=== PATIENT | female | born 1965 | race Caucasian/White ===

== ENCOUNTER 2020-03-21 10:32 | Emergency (ER) | payer BC ==
[~2020-03-21] VITALS: Ht 167.6 cm; Wt 70.5 kg
[2020-03-21] MEDS ORDERED: normal saline 1000ML IV soln IV ONE (10:35)
[2020-03-21] MEDS ORDERED: ondansetron/PF 4mg/2ml inj IV ONE ×2 (10:45→14:10)
--- NOTE | 2020-03-21 11:06 | NUR ---
Spoke to pt's , Oswaldo, regarding pt's condition. Gave him ED phone number for updates. Home:
[2020-03-21 11:31] LABS: EOSINOPHILS % (AUTO) 0.8 % (0-6); HEMATOCRIT 42.8 % (35.0-45.0); HEMOGLOBIN 14.6 g/dl (12.0-16.0); LYMPHOCYTES # (AUTO) 0.7 X10'3 (1.1-4.8); LYMPHOCYTES % (AUTO) 16.6 % (21-51); MEAN CORPUSCULAR HEMOGLOBIN 34.8 PG (27.0-31.0); MEAN CORPUSCULAR HGB CONC 34.1 g/dL (33.0-36.5); MEAN PLATELET VOLUME 9.3 FL (7.4-10.4); MONOCYTES # (AUTO) 0.2 X10'3 (0-0.9); MONOCYTES % (AUTO) 4.4 % (2-12); NEUTROPHILS % (AUTO) 77.2 % (42-75); PLATELET COUNT 66 X10'3 (140-440); RED CELL DISTRIBUTION WIDTH 13.6 % (11.5-14.5); WHITE BLOOD COUNT 3.9 X10'3 (4.5-11.0)
[2020-03-21 11:57] LABS: ALANINE AMINOTRANSFERASE 67 U/L (12-78); ALBUMIN 3.8 G/DL (3.4-5.0); ALBUMIN/GLOBULIN RATIO 0.8 (1.1-1.5); ALKALINE PHOSPHATASE 230 IU/L (46-116); ANION GAP 14 (8-16); ASPARTATE AMINO TRANSFERASE 148 U/L (10-37); BILIRUBIN,TOTAL 2.6 MG/DL (0.1-1.0); BLOOD UREA NITROGEN 4 MG/DL (7-18); BUN/CREATININE RATIO 4.3 (6.6-38.0); CALCIUM 9.5 MG/DL (8.5-10.1); CHLORIDE 98 MMOL/L (99-107); CREATININE 0.94 MG/DL (0.40-0.90); GLUCOSE 144 MG/DL (70-104); MAGNESIUM 1.7 MG/DL (1.5-2.4); POTASSIUM 3.4 MMOL/L (3.5-5.1); SODIUM 135 MMOL/L (135-145); TOTAL CARBON DIOXIDE 23.2 MMOL/L (24-32); TOTAL PROTEIN 8.5 G/DL (6.4-8.2); eGFR 62 ML/MIN
[2020-03-21 13:28] LABS: CLARITY,URINE CLEAR (Clear); COLOR,URINE YELLOW (Yellow); GLUCOSE, URINE NEGATIVE (Neg); KETONES,URINE NEGATIVE (Neg); LEUKOCYTE ESTERASE ,URINE NEGATIVE (Neg); NITRITES, URINE NEGATIVE (Neg); OCCULT BLOOD,URINE TRACE-INTACT (Neg); PH,URINE 7.5 (4.8-8.0); PROTEIN,URINE TRACE mg/dl (Neg); UROBILINOGEN,URINE 0.2 E.U/dL (0.2-1.0)
[2020-03-21 13:32] LABS: UA COLLECTION TYPE OTHER
[2020-03-21 13:33] LABS: BACTERIA,URINE NONE SEEN /HPF (Neg); MUCUS STRANDS NONE SEEN /LPF (Neg); RBC,URINE 0-2 /HPF (0-2); SQUAMOUS EPITHELIAL CELL,UR FEW /LPF (FEW); WBC,URINE 0-4 /HPF (0-4)
[2020-03-21] MEDS ORDERED: ONDA4TAB6 PO (14:16)
[2020-03-21] MEDS ORDERED: PROM25TA14 PO (14:16)
--- NOTE | 2020-03-21 14:57 | NUR ---
Pt voided at bedside commode. Pt changed into hospital scrubs, and IV discontinued. Awaiting for ride. ETA 1500
[2020-03-21 15:13] VITALS: BP 142/94
== END 2020-03-21 15:15 | disposition home or self-care (01) ==
LOC: ER 10:33
DX: S09.90XA Unspecified injury of head, initial encounter (principal); R11.2 Nausea with vomiting, unspecified; E86.0 Dehydration; R50.9 Fever, unspecified; R55 Syncope and collapse; R10.84 Generalized abdominal pain; X58.XXXA Exposure to other specified factors, initial encounter; Y93.89 Activity, other specified; Y92.89 Other specified places as the place of occurrence of the external cause; Y99.8 Other external cause status
CPT/HCPCS: 36415; 70450; 71045; 72125; 80053; 81001; 83605; 83735; 84145; 85025; 87040; 93005; 96361; 96374; 96376; 99285; J2405; J7030

== ENCOUNTER 2020-08-19 13:10 | Outpatient (CLI) | payer BC ==
[~2020-08-19 13:10] MED LIST: ONDA4TAB6 PO; PROM25TA14 PO
[2020-08-19 16:36] LABS: BASOPHILS # (AUTO) 0.2 X10'3 (0-0.2); EOSINOPHILS # (AUTO) 0.3 X10'3 (0-0.9); MONOCYTES # (AUTO) 0.5 X10'3 (0-0.9)
[2020-08-19 16:38] LABS: BASOPHILS % (AUTO) 2.7 % (0-1); LYMPHOCYTES # (AUTO) 1.7 X10'3 (1.1-4.8); LYMPHOCYTES % (AUTO) 25.4 % (21-51); MEAN CORPUSCULAR HEMOGLOBIN 33.9 PG (27.0-31.0); MEAN CORPUSCULAR HGB CONC 34.4 g/dL (33.0-36.5); MEAN CORPUSCULAR VOLUME 98.4 FL (78-98); MEAN PLATELET VOLUME 9.1 FL (7.4-10.4); MONOCYTES % (AUTO) 6.8 % (2-12); NEUTROPHILS # (AUTO) 4.2 X10'3 (1.8-7.7); NEUTROPHILS % (AUTO) 61.1 % (42-75); PRE OP HEMATOCRIT 42.6 % (35.0-45.0); PRE OP HEMOGLOBIN 14.7 g/dL (12.0-16.0); PRE OP PLATELET COUNT 104 X10'3 (140-440); RED BLOOD COUNT 4.33 X10'6 (4.20-5.60); RED CELL DISTRIBUTION WIDTH 12.9 % (11.5-14.5)
[2020-08-19 16:47] LABS: ALBUMIN 4.1 G/DL (3.4-5.0); ALBUMIN/GLOBULIN RATIO 0.9 (1.1-1.5); ALKALINE PHOSPHATASE 167 IU/L (46-116); BLOOD UREA NITROGEN 9 MG/DL (7-18); BUN/CREATININE RATIO 12.7 (6.6-38.0); CALCIUM 9.8 MG/DL (8.5-10.1); CHLORIDE 99 MMOL/L (99-107); CREATININE 0.71 MG/DL (0.40-0.90); PRE OP ALT 39 U/L (30-65); PRE OP ANION GAP 14 (8-16); PRE OP AST 66 U/L (10-37); PRE OP BILIRUB, TOTAL 1.4 MG/DL (0.0-1.0); PRE OP GLUCOSE 82 MG/DL (70-104); PRE OP POTASSIUM 3.8 MMOL/L (3.4-5.1); PRE OP SODIUM 136 MMOL/L (135-145); TOTAL CARBON DIOXIDE 22.8 MMOL/L (24-32); TOTAL PROTEIN 8.8 G/DL (6.4-8.2); eGFR 86 ML/MIN
[2020-08-19] MEDS ORDERED: LEVO137T2 PO (17:02)
[2020-08-19] MEDS ORDERED: ONDA4TAB6 PO (17:02)
[2020-08-19] MEDS ORDERED: BUSP5TAB3 PO (17:02)
[2020-08-19] MEDS ORDERED: GABA300T25 PO (17:02)
[2020-08-19] MEDS ORDERED: OMEP-50 PO (17:02)
== END 2020-08-19 23:59 | disposition home or self-care (01) ==
LOC: PRE-OP 13:10 → EDSTATUS 08-25 11:00
PROVIDERS: ATTEND Orthopaedic Surgery
DX: Z01.812 Encounter for preprocedural laboratory examination (principal); I48.91 Unspecified atrial fibrillation; Z20.822 Contact with and (suspected) exposure to COVID-19
CPT/HCPCS: 36415; 80053; 85025; 87635

== ENCOUNTER 2020-09-01 05:34 | Day surgery (SDC) | payer BC ==
[2020-09-01] VITALS (11 sets, daily range): BP systolic 117–149; BP diastolic 77–102
[~2020-09-01] VITALS: Ht 167.6 cm; Wt 77.1 kg
[~2020-09-01 05:34] MED LIST changes: +BUPR150T8 PO; +BUSP5TAB3 PO; +GABA300T25 PO; +LEVO137T2 PO; +OMEP-50 PO; -ONDA4TAB6 PO; -PROM25TA14 PO; +albuterol 2.5 MG/3 ML nebule NEB ONE; +clindamycin-Cleocin 900mg/D5W 50 ML IV ONE; +famotidine 20mg tablet PO ONE; +ringers solution, lacted 1,000 ML IV SCH; +vancomycin 1,500 MG in NS 300ml IV soln IV ONE
[2020-09-01] MEDS ORDERED: LIDOcaine 1% (10mg/ml) 2ml vial ONE (06:09)
[2020-09-01 06:52] LABS: BASOPHILS # (AUTO) 0.1 X10'3 (0-0.2); BASOPHILS % (AUTO) 1.4 % (0-1); EOSINOPHILS # (AUTO) 0.2 X10'3 (0-0.9); EOSINOPHILS % (AUTO) 5.1 % (0-6); LYMPHOCYTES # (AUTO) 0.9 X10'3 (1.1-4.8); MEAN CORPUSCULAR HGB CONC 34.5 g/dL (33.0-36.5); MEAN CORPUSCULAR VOLUME 98.4 FL (78-98); MEAN PLATELET VOLUME 9.5 FL (7.4-10.4); MONOCYTES # (AUTO) 0.4 X10'3 (0-0.9); MONOCYTES % (AUTO) 8.4 % (2-12); NEUTROPHILS # (AUTO) 2.7 X10'3 (1.8-7.7); NEUTROPHILS % (AUTO) 64.1 % (42-75); PRE OP HEMATOCRIT 40.4 % (35.0-45.0); PRE OP HEMOGLOBIN 13.9 g/dL (12.0-16.0); RED CELL DISTRIBUTION WIDTH 13.3 % (11.5-14.5)
[2020-09-01 06:56] LABS: PRE OP INR 1.1 INR; PRE OP PROTIME 11.3 SECONDS (9.0-12.0)
[2020-09-01 07:01] LABS: ALBUMIN 3.6 G/DL (3.4-5.0); ALBUMIN/GLOBULIN RATIO 0.9 (1.1-1.5); ALKALINE PHOSPHATASE 160 IU/L (46-116); BLOOD UREA NITROGEN 8 MG/DL (7-18); BUN/CREATININE RATIO 10.8 (6.6-38.0); CALCIUM 9.5 MG/DL (8.5-10.1); CHLORIDE 99 MMOL/L (99-107); CREATININE 0.74 MG/DL (0.40-0.90); PRE OP ALT 40 U/L (30-65); PRE OP ANION GAP 12 (8-16); PRE OP AST 74 U/L (10-37); PRE OP BILIRUB, TOTAL 1.7 MG/DL (0.0-1.0); PRE OP GLUCOSE 119 MG/DL (70-104); PRE OP POTASSIUM 3.9 MMOL/L (3.4-5.1); PRE OP SODIUM 134 MMOL/L (135-145); TOTAL CARBON DIOXIDE 22.7 MMOL/L (24-32); TOTAL PROTEIN 7.8 G/DL (6.4-8.2); eGFR 82 ML/MIN
[2020-09-01 07:05] LABS: PRE OP PLATELET COUNT 86 X10'3 (140-440)
[2020-09-01] MEDS ORDERED: hydrALAZINE 20mg/ml inj. IV PRN (07:10)
[2020-09-01] MEDS ORDERED: ringers solution, lacted 1,000 ML IV SCH (07:10)
[2020-09-01] MEDS ORDERED: morphine 2 MG/ML inj. syringe IV PRN (07:10)
[2020-09-01] MEDS ORDERED: labetalol 20mg/4ml (5mg/ml) syringe IV PRN (07:10)
[2020-09-01] MEDS ORDERED: morphine 4 MG/ML inj SYRINge IV PRN (07:10)
[2020-09-01] MEDS ORDERED: ondansetron/PF 4mg/2ml inj IV PRN (07:10)
[2020-09-01] MEDS ORDERED: fentaNYL/PF 50MCG/1 ML 2ML syringe IV PRN ×2 (07:10)
[2020-09-01] MEDS ORDERED: fentaNYL/PF 50MCG/1 ML 2ML syringe ONE ×2 (07:12→09:34)
[2020-09-01] MEDS ORDERED: midazolam 1 mg/ML 2ml injection ONE (07:12)
[2020-09-01] MEDS ORDERED: ROPIVAcaine 0.5% (5mg/ml) 30ml vial ONE (07:13)
[2020-09-01] MEDS ORDERED: dexamethasone sod phosphate 4mg/ml inj. ONE (07:13)
[2020-09-01] MEDS ORDERED: ROPIVAcaine 0.2%/PF PUMP/bolus 550 ML INTERSCALE SCH (07:25)
[2020-09-01] MEDS ORDERED: ROPIVAcaine 0.2% (10 MG/5 ML) BOLUS INJECTION INTERSCALE PRN (07:25)
[2020-09-01] MEDS ORDERED: acetaminophen 1000 MG/100ml vial IV ONE (07:40)
[2020-09-01] MEDS ORDERED: sevoflurane 250ml liquid IH ONE (07:40)
[2020-09-01] MEDS ORDERED: ondansetron/PF 4mg/2ml inj ONE (08:17)
--- NOTE | 2020-09-01 10:20 | NUR ---
ADMITTED TO PACU FROM OR ACCOMPANIED BY ANESTHESIA. INTIAL PHYSICAL ASSESSMENT DONE AND RECORDED. REPORT RECEIVED FROM ANESTHESIA.
--- NOTE | 2020-09-01 12:00 | NUR ---
DISCHARGE CRITERIA MET, DISCHARGE INSTRUCTIONS GIVEN, DEMONSTRATES VERBAL UNDERSTANDING. DISCHARGED HOME IN GOOD CONDITION
== END 2020-09-01 12:00 | disposition home or self-care (01) ==
LOC: PAS 05:34
PROVIDERS: ATTEND Orthopaedic Surgery
DX: S46.012A Strain of muscle(s) and tendon(s) of the rotator cuff of left shoulder, initial encounter (principal); S42.202A Unspecified fracture of upper end of left humerus, initial encounter for closed fracture; F32.9 Major depressive disorder, single episode, unspecified; F41.9 Anxiety disorder, unspecified; E03.9 Hypothyroidism, unspecified; K21.9 Gastro-esophageal reflux disease without esophagitis; F17.210 Nicotine dependence, cigarettes, uncomplicated; Z72.89 Other problems related to lifestyle; Z79.899 Other long term (current) drug therapy; Z88.1 Allergy status to other antibiotic agents; Z90.49 Acquired absence of other specified parts of digestive tract; Z98.890 Other specified postprocedural states; Z86.19 Personal history of other infectious and parasitic diseases; W08.XXXA Fall from other furniture, initial encounter; Y93.89 Activity, other specified; Y92.89 Other specified places as the place of occurrence of the external cause; Y99.8 Other external cause status
CPT/HCPCS: 23410; 64416; 76937; 80053; 85025; 85610; 85730; 94640; C1713; J0131; J1100; J2001; J2250; J2405; J2795; J3010; J3370; J7040; J7120; A4215; A4565; A4618; A7000; J3490

== ENCOUNTER 2021-03-30 05:25 | Inpatient (IN) | payer BC ==
[2021-03-25 11:11] LABS: BASOPHILS # (AUTO) 0.1 X10'3 (0-0.2); EOSINOPHILS # (AUTO) 0.5 X10'3 (0-0.9); MONOCYTES # (AUTO) 0.5 X10'3 (0-0.9); PRE OP HEMOGLOBIN 13.2 g/dL (12.0-16.0)
[2021-03-25 11:13] LABS: BASOPHILS % (AUTO) 1.1 % (0-1); EOSINOPHILS % (AUTO) 6.5 % (0-6); LYMPHOCYTES % (AUTO) 25.1 % (21-51); MEAN CORPUSCULAR HEMOGLOBIN 33.4 PG (27.0-31.0); MEAN CORPUSCULAR HGB CONC 35.2 g/dL (33.0-36.5); MEAN PLATELET VOLUME 10.6 FL (7.4-10.4); MONOCYTES % (AUTO) 5.9 % (2-12); NEUTROPHILS # (AUTO) 4.9 X10'3 (1.8-7.7); NEUTROPHILS % (AUTO) 61.4 % (42-75); PRE OP HEMATOCRIT 37.6 % (35.0-45.0); PRE OP PLATELET COUNT 118 X10'3 (140-440); RED BLOOD COUNT 3.96 X10'6 (4.20-5.60); RED CELL DISTRIBUTION WIDTH 13.9 % (11.5-14.5)
[2021-03-25 11:33] LABS: ALBUMIN 3.3 G/DL (3.4-5.0); ALBUMIN/GLOBULIN RATIO 0.8 (1.1-1.5); ALKALINE PHOSPHATASE 145 IU/L (46-116); BLOOD UREA NITROGEN 8 MG/DL (7-18); CALCIUM 8.9 MG/DL (8.5-10.1); CHLORIDE 95 MMOL/L (99-107); PRE OP ALT 34 U/L (30-65); PRE OP ANION GAP 10 (8-16); PRE OP AST 43 U/L (10-37); PRE OP BILIRUB, TOTAL 1.7 MG/DL (0.0-1.0); PRE OP GLUCOSE 80 MG/DL (70-104); PRE OP POTASSIUM 4.4 MMOL/L (3.4-5.1); TOTAL CARBON DIOXIDE 24.7 MMOL/L (24-32); TOTAL PROTEIN 7.5 G/DL (6.4-8.2); eGFR 75 ML/MIN
[2021-03-25 11:37] LABS: PRE OP SODIUM 130 MMOL/L (135-145)
[2021-03-25 12:04] LABS: LARGE PLATELETS MODERATE; PLATELET ESTIMATE DECREASED
[2021-03-30] VITALS (18 sets, daily range): BP systolic 93–126; BP diastolic 57–83
[~2021-03-30] VITALS: Ht 165.1 cm; Wt 70.8 kg
[~2021-03-30 05:25] MED LIST changes: -BUPR150T8 PO; -GABA300T25 PO; +LEVO125T PO; +ONDA4TAB6 PO; +PROP60TA19 PO; +SPIR100T5 PO; -albuterol 2.5 MG/3 ML nebule NEB ONE; -clindamycin-Cleocin 900mg/D5W 50 ML IV ONE; -famotidine 20mg tablet PO ONE; -vancomycin 1,500 MG in NS 300ml IV soln IV ONE
[2021-03-30] MEDS ORDERED: ceFAZolin 2gm in dextrose, iso 50 ML IV ONE (05:30)
[2021-03-30] MEDS ORDERED: famotidine 20mg tablet PO ONE (05:30)
[2021-03-30] MEDS ORDERED: vancomycin/NS 1 GM ADD-VANTAGE 250 ML X 1 DOSE IV ONE (05:30)
[2021-03-30] MEDS ORDERED: tranexamic acid inj. 1,000 MG in normal saline 100 ML IV ONE (05:30)
[2021-03-30] MEDS ORDERED: LIDOcaine 1% (10mg/ml) 2ml vial ONE (05:49)
[2021-03-30] MEDS ORDERED: vancomycin 1,000mg inj ONE (08:10)
[2021-03-30] MEDS ORDERED: MIDAZolam 1 MG/ML 5ML VIAL ONE (08:44)
[2021-03-30] MEDS ORDERED: fentaNYL/PF 50MCG/1 ML 2ML syringe ONE (08:44)
[2021-03-30] MEDS ORDERED: propofol inj 20 ML IV ONE ×2 (09:16)
[2021-03-30] MEDS ORDERED: ROPIVAcaine 0.5% (5mg/ml) 30ml vial ONE (09:16)
[2021-03-30] MEDS ORDERED: dexamethasone sod phosphate 4mg/ml inj. ONE (09:16)
[2021-03-30] MEDS ORDERED: ondansetron/PF 4mg/2ml inj ONE (09:16)
[2021-03-30] MEDS ORDERED: ringers solution, lacted 1,000 ML IV SCH (09:45)
[2021-03-30] MEDS ORDERED: proCHLORperazine 10 MG/2 ml inj IV PRN (09:45)
[2021-03-30] MEDS ORDERED: ROPIVAcaine 0.2% (10 MG/5 ML) BOLUS INJECTION INTERSCALE PRN (09:45)
[2021-03-30] MEDS ORDERED: morphine 4 MG/ML inj SYRINge IV PRN (09:45)
[2021-03-30] MEDS ORDERED: meperidine/PF 25mg/ml syringe IV PRN ×3 (09:45)
[2021-03-30] MEDS ORDERED: morphine 2 MG/ML inj. syringe IV PRN (09:45)
[2021-03-30] MEDS ORDERED: ondansetron/PF 4mg/2ml inj IV PRN ×2 (09:45→12:05)
[2021-03-30] MEDS ORDERED: ROPIVAcaine 0.2%/PF PUMP/bolus 545 ML INTERSCALE SCH (09:45)
--- NOTE | 2021-03-30 11:58 | NUR ---
ASSUME CARE PT AWAKE VSS NO DISTRESS DENIES PAIN LEFT ARM IN A SLING WITH ICE TO SITE. +CMS TO LEFT HAND AND FINGERS. DRESSING TO LEFT SHOULDER CDI. IV TO RT FA PATIENT WITH IV INFUSING WITHOUT DIFF. CONT TO MONITOR. Addendum: 03/30/21 at 1236 by Arianna Man RN Amended: Links added.
[2021-03-30] MEDS ORDERED: bisacodyl 10mg suppository rectal RC PRN (12:05)
[2021-03-30] MEDS ORDERED: acetaminophen 325mg tablet PO PRN (12:05)
[2021-03-30] MEDS ORDERED: HYDROmorphone 1 mg/ml syringe IV PRN (12:05)
[2021-03-30] MEDS ORDERED: oxyCODONE IR 5mg (immed. release) tablet PO PRN ×2 (12:05)
[2021-03-30] MEDS ORDERED: HYDROmorphone inj. 0.5 MG/0.5 ML DISP.SYRIN IV PRN (12:05)
[2021-03-30] MEDS ORDERED: magnesium hydroxide 30ml (MOM) UD suspension PO PRN (12:05)
[2021-03-30] MEDS ORDERED: diphenhydrAMINE 25mg capsule PO PRN ×2 (12:05)
--- NOTE | 2021-03-30 12:43 | NUR ---
PT AWAKE ALERT DENIES PAIN HEIDI POS VSS ON RA MEETS CRITERIA TO DC TO ROOM REPORT CALLED TRANSPORT PT VIA BED TO ROOM. Addendum: 03/30/21 at 1244 by Arianna Man RN Amended: Links added.
[2021-03-30] MEDS: gabapentin 300mg capsule PO SCH ×2 (13:00→20:50)
--- NOTE | 2021-03-30 13:30 | NUR ---
Patient in room PAS IN 900. I have received report from Arianna valente RN from recovery and had the opportunity to ask questions and assume patient care.
--- NOTE | 2021-03-30 13:40 | NUR ---
LOLIS CALLED BACK TO GET REPORT PT TRANSPORTED TO ROOM VIA BED AWAKE ALERT NO DISTRESS. Addendum: 03/30/21 at 1342 by Arianna Man RN Amended: Links added.
--- NOTE | 2021-03-30 13:45 | NUR ---
Received report from Arianna valente RN from recovery. pt is A & O x4, by her side. Pt in no apparent distress, zero pain. Pt hungry, lunch ordered. NO N/V.
[2021-03-30] MEDS ORDERED: acetaminophen 325mg tablet PO SCH (14:00)
[2021-03-30] MEDS: potassium cl 20mEq in 1/2 NS 1,000 ML IV SCH ×2 (14:00→20:05)
[2021-03-30] MEDS ORDERED: acetaminophen 1,000mg/100ml IV 100 ML IV SCH (14:00)
[2021-03-30] MEDS ORDERED: tranexamic acid inj. 700 MG in normal saline 100ml IV soln 100 ML IV ONE (15:00)
[2021-03-30] MEDS ORDERED: busPIRone 5mg tablet PO PRN (16:25)
[2021-03-30] MEDS ORDERED: non-formulary drug (Ondansetron Hcl (Zofran) 1 TAB) PO PRN (16:25)
[2021-03-30] MEDS: nicotine 14mg patch - 24hr TD SCH (17:59)
--- NOTE | 2021-03-30 18:14 | NUR ---
Problems reprioritized. Patient report given, questions answered & plan of care reviewed with Pat RN.
[2021-03-30] MEDS ORDERED: vancomycin/NS 1 GM ADD-VANTAGE 250 ML IV SCH (20:00)
[2021-03-30] MEDS: propranolol 10mg tablet PO SCH (20:51)
[2021-03-30] MEDS ORDERED: sennosides 8.6mg tablet PO SCH (21:00)
[2021-03-31] VITALS: BP 100/62
[2021-03-31] MEDS ORDERED: acetaminophen 325mg tablet PO PRN (03:56)
[2021-03-31 04:30] VITALS: BP 103/67
[2021-03-31] MEDS: potassium cl 20mEq in 1/2 NS 1,000 ML IV SCH ×2 (05:32→12:05)
[2021-03-31 06:23] LABS: BASOPHILS % (AUTO) 0.1 % (0-1); EOSINOPHILS % (AUTO) 0 % (0-6); HEMATOCRIT 32.1 % (35.0-45.0); HEMOGLOBIN 10.9 g/dl (12.0-16.0); LYMPHOCYTES # (AUTO) 0.7 X10'3 (1.1-4.8); LYMPHOCYTES % (AUTO) 6.9 % (21-51); MEAN CORPUSCULAR HEMOGLOBIN 33.4 PG (27.0-31.0); MEAN PLATELET VOLUME 10.7 FL (7.4-10.4); MONOCYTES # (AUTO) 0.7 X10'3 (0-0.9); MONOCYTES % (AUTO) 6.6 % (2-12); NEUTROPHILS # (AUTO) 8.8 X10'3 (1.8-7.7); NEUTROPHILS % (AUTO) 86.4 % (42-75); PLATELET COUNT 100 X10'3 (140-440); RED BLOOD COUNT 3.27 X10'6 (4.20-5.60); RED CELL DISTRIBUTION WIDTH 14.8 % (11.5-14.5); WHITE BLOOD COUNT 10.2 X10'3 (4.5-11.0)
--- NOTE | 2021-03-31 06:34 | NUR ---
Patient in room JOHANNA 345. I have received report from pat rn and had the opportunity to ask questions and assume patient care.
[2021-03-31 06:48] LABS: SODIUM 136 MMOL/L (135-145)
[2021-03-31 06:49] LABS: ANION GAP 12 (8-16); CHLORIDE 104 MMOL/L (99-107); POTASSIUM 4.6 MMOL/L (3.5-5.1); TOTAL CARBON DIOXIDE 19.8 MMOL/L (24-32)
[2021-03-31 07:00] VITALS: BP 103/62
[2021-03-31] MEDS ORDERED: levoTHYROXINE 25mcg tablet PO SCH (07:00)
[2021-03-31] MEDS ORDERED: levoTHYROXINE 112mcg tablet PO SCH (07:00)
[2021-03-31] MEDS ORDERED: pantoprazole 40mg Tablet.DR PO SCH ×2 (07:30→08:56)
[2021-03-31] MEDS ORDERED: aspirin 325mg tablet PO SCH (08:30)
[2021-03-31] MEDS ORDERED: spironolactone 25 MG tablet PO SCH (08:30)
[2021-03-31] MEDS: gabapentin 300mg capsule PO SCH ×2 (08:35→12:41)
[2021-03-31] MEDS: propranolol 10mg tablet PO SCH (08:37)
[2021-03-31] MEDS: nicotine 14mg patch - 24hr TD SCH (08:40)
[2021-03-31 10:30] LABS: HYPOCHROMASIA 1+; LARGE PLATELETS FEW; PLATELET ESTIMATE DECREASED
[2021-03-31 11:00] VITALS: BP 136/82
--- NOTE | 2021-03-31 14:00 | NUR ---
pt discharged to home in private vehicle with . Iv removed, tip intact no complications. belongings sent with patient. Discharge instructions provided regarding post op care and follow up. Pt discharged in stable condition
--- NOTE | 2021-03-31 14:14 | NUR ---
Joint surgery consult: Pt s/p L shoulder surgery this admit. Pt/SO seen by ILAN for written/verbal high protein ed w/ RD contact information provided. ILAN encouraged pt/SO to contact dietitian's office if further questions/concerns. Addendum: 03/31/21 at [address] Amended: Links added.
[2021-03-31] MEDS ORDERED: celeCOXIB 100mg capsule PO SCH (20:00)
== END 2021-03-31 13:53 | disposition home or self-care (01) | DRG 483 ==
LOC: PAS IN 05:25 → UNDOADMIN 05:25 → PAS IN 12:09 → SUR 3N 13:35
PROVIDERS: ADMIT Orthopaedic Surgery; ATTEND Orthopaedic Surgery
PROC: 3E0T3BZ Introduction of Anesthetic Agent into Peripheral Nerves and Plexi, Percutaneous Approach (ICD-10-PCS; 2021-03-30)
PROC: 3E0T33Z Introduction of Anti-inflammatory into Peripheral Nerves and Plexi, Percutaneous Approach (ICD-10-PCS; 2021-03-30)
PROC: 0RRK00Z Replacement of Left Shoulder Joint with Reverse Ball and Socket Synthetic Substitute, Open Approach (ICD-10-PCS; principal; 2021-03-30 08:36)
DX: M19.012 Primary osteoarthritis, left shoulder (principal); I10 Essential (primary) hypertension; F41.9 Anxiety disorder, unspecified; E03.9 Hypothyroidism, unspecified; K21.9 Gastro-esophageal reflux disease without esophagitis; Z79.899 Other long term (current) drug therapy
CPT/HCPCS: Z7506; Z7508; 36415; 73020; 80051; 80053; 82948; 84295; 84439; 84443; 85008; 85025; 87081; 93005; 97110; 97161; 97530; A4565; A4618; A7000; C1776; C9250; G0378; J0131; J1100; J2001; J2250; J2405; J2704; J2795; J3010; J3370; J3480; J7120; U0003; U0005

== ENCOUNTER 2021-08-30 12:26 | Inpatient (IN) | payer BC ==
[~2021-08-30] VITALS: Ht 165.1 cm; Wt 77.7 kg
[~2021-08-30 12:26] MED LIST changes: -LEVO125T PO; -OMEP-50 PO; +OMEP20CA16 PO; -ringers solution, lacted 1,000 ML IV SCH
[2021-08-30 13:44] LABS: BASOPHILS # (AUTO) 0.1 X10'3 (0-0.2); BASOPHILS % (AUTO) 0.9 % (0-1); EOSINOPHILS # (AUTO) 0.6 X10'3 (0-0.9); EOSINOPHILS % (AUTO) 3.4 % (0-6); HEMATOCRIT 30.5 % (35.0-45.0); HEMOGLOBIN 10.1 g/dl (12.0-16.0); LYMPHOCYTES # (AUTO) 1.5 X10'3 (1.1-4.8); LYMPHOCYTES % (AUTO) 9.1 % (21-51); MEAN CORPUSCULAR HEMOGLOBIN 36.1 PG (27.0-31.0); MEAN CORPUSCULAR HGB CONC 33.2 g/dL (33.0-36.5); MEAN CORPUSCULAR VOLUME 108.7 FL (78-98); MEAN PLATELET VOLUME 11.4 FL (7.4-10.4); MONOCYTES # (AUTO) 1.2 X10'3 (0-0.9); MONOCYTES % (AUTO) 7.4 % (2-12); NEUTROPHILS # (AUTO) 13.4 X10'3 (1.8-7.7); NEUTROPHILS % (AUTO) 79.2 % (42-75); PLATELET COUNT 125 X10'3 (140-440); RED BLOOD COUNT 2.81 X10'6 (4.20-5.60); RED CELL DISTRIBUTION WIDTH 16.1 % (11.5-14.5); WHITE BLOOD COUNT 16.9 X10'3 (4.5-11.0)
[2021-08-30 14:05] LABS: ALANINE AMINOTRANSFERASE 34 U/L (12-78); ALBUMIN 1.9 G/DL (3.4-5.0); ALKALINE PHOSPHATASE 200 IU/L (46-116); ANION GAP 15 (8-16); BILIRUBIN,TOTAL 17.1 MG/DL (0.1-1.0); BLOOD UREA NITROGEN 87 MG/DL (7-18); BUN/CREATININE RATIO 14.5 (6.6-38.0); CALCIUM 9.3 MG/DL (8.5-10.1); CHLORIDE 93 MMOL/L (99-107); CREATININE 6.02 MG/DL (0.40-0.90); LIPASE 258 U/L (73-393); SODIUM 127 MMOL/L (135-145); TOTAL CARBON DIOXIDE 19.4 MMOL/L (24-32); eGFR 7 ML/MIN
[2021-08-30 14:07] LABS: ALBUMIN/GLOBULIN RATIO 0.4 (1.1-1.5); ASPARTATE AMINO TRANSFERASE 92 U/L (10-37); ETHANOL < 0.010 GM/DL (0.0-0.010); GLUCOSE 88 MG/DL (70-104); POTASSIUM 3.9 MMOL/L (3.5-5.1); TOTAL PROTEIN 6.4 G/DL (6.4-8.2)
[2021-08-30] MEDS ORDERED: LACT10SO3 PO (14:29)
[2021-08-30] MEDS ORDERED: INDLA60C PO (14:29)
[2021-08-30] MEDS ORDERED: FURO20TA4 PO (14:29)
[2021-08-30] MEDS ORDERED: ACAM333T8 PO (14:29)
[2021-08-30 14:39] LABS: TOTAL CELLS COUNTED 100
[2021-08-30 14:40] LABS: ANISOCYTOSIS 1+; LARGE PLATELETS MODERATE; PLATELET ESTIMATE DECREASED
[2021-08-30] MEDS ORDERED: busPIRone 5mg tablet PO STA (15:03)
[2021-08-30 15:08] LABS: APTT 28 SECONDS (22-32)
[2021-08-30] MEDS ORDERED: acetaminophen 325mg tablet PO PRN (15:30)
[2021-08-30] MEDS ORDERED: magnesium hydroxide 30ml (MOM) UD suspension PO PRN (15:30)
[2021-08-30] MEDS ORDERED: mag hydrox/Alum hydrox/simeth 30ml oral suspension PO PRN (15:30)
[2021-08-30 15:57] LABS: HEMOGLOBIN A1C 4.2 % (4.5-6.2)
[2021-08-30] MEDS: normal saline 1000ml 1,000 ML IV SCH (16:40)
[2021-08-30] MEDS ORDERED: nicotine 14mg patch - 24hr TD ONE (16:45)
[2021-08-30] MEDS: lactulose 20gm/30ml cup PO SCH ×2 (17:08→23:00)
[2021-08-30] MEDS: albumin (human) 25% 100ml IV 100 ML IV SCH ×2 (17:09→22:55)
--- NOTE | 2021-08-30 18:33 | NUR ---
Note christopher in EDM - 08/30/21 at 1911 by SHIELA assumed care of patient from Jonh Rodríguez+ox4. Diminished lung sounds, wet cough. Skin warm and dry. awaiting room. patient updated, requesting to eat. GIVEN MEAL
--- NOTE | 2021-08-30 18:33 | NUR ---
assumed care of patient from Jonh DANIELLE. A+ox4. Talk in full sentences. Skin warm and dry. awaiting room. patient updated, requesting to eat. REQUESTING MEAL.
--- NOTE | 2021-08-30 18:51 | NUR ---
Note undone in [facility] - 08/30/21 at 1910 by SHIELA PATIENT AMBULATES TO BATHROOM, GAIT STEADY Addendum: 08/30/21 at 1905 by CHRISTIAN Amendment sinone in [facility] - 08/30/21 at 1910 by SHIELA Patient updated on status, no c/o. Will continue to monitor. Given hospital socks
--- NOTE | 2021-08-30 19:12 | NUR ---
Patient made comfortable and updated.
--- NOTE | 2021-08-30 19:26 | NUR ---
patient given snacks.
[2021-08-30] MEDS ORDERED: albumin (human) 25% 100ml IV 100 ML IV SCH (20:00)
[2021-08-30] MEDS: propranolol LA 60 MG cap.SA.24H PO SCH (20:00)
[2021-08-30] MEDS: docusate sod 100mg capsule PO SCH (20:00)
[2021-08-30] MEDS ORDERED: acamprosate DR 333mg Tablet PO SCH ×2 (21:00→22:20)
[2021-08-30 22:00] VITALS: BP 90/59
[2021-08-31] VITALS (11 sets, daily range): BP systolic 83–94; BP diastolic 52–62
[2021-08-31] MEDS ORDERED: temazepam 15mg capsule PO PRN (01:45)
[2021-08-31] MEDS ORDERED: temazepam 15mg capsule PO ONE (01:45)
[2021-08-31] MEDS: albumin (human) 25% 100ml IV 100 ML IV SCH ×4 (01:55→19:58)
[2021-08-31] MEDS: acetaminophen 325mg tablet PO PRN (02:00)
--- NOTE | 2021-08-31 02:00 | NUR ---
Called Dr. Manning for IBUprofen or Advil, stated to give patient Tylenol for minimal pain.
[2021-08-31] MEDS: normal saline 1000ml 1,000 ML IV SCH ×3 (06:00→23:54)
[2021-08-31 06:03] LABS: BASOPHILS # (AUTO) 0.1 X10'3 (0-0.2); BASOPHILS % (AUTO) 0.7 % (0-1); EOSINOPHILS # (AUTO) 0.4 X10'3 (0-0.9); EOSINOPHILS % (AUTO) 3.9 % (0-6); LYMPHOCYTES # (AUTO) 1.6 X10'3 (1.1-4.8); LYMPHOCYTES % (AUTO) 15.5 % (21-51); MEAN CORPUSCULAR HEMOGLOBIN 37.1 PG (27.0-31.0); MEAN CORPUSCULAR HGB CONC 34.4 g/dL (33.0-36.5); MEAN CORPUSCULAR VOLUME 107.6 FL (78-98); MEAN PLATELET VOLUME 11.2 FL (7.4-10.4); MONOCYTES # (AUTO) 0.9 X10'3 (0-0.9); MONOCYTES % (AUTO) 9.1 % (2-12); NEUTROPHILS # (AUTO) 7.3 X10'3 (1.8-7.7); NEUTROPHILS % (AUTO) 70.8 % (42-75); PLATELET COUNT 69 X10'3 (140-440); RED BLOOD COUNT 1.88 X10'6 (4.20-5.60); RED CELL DISTRIBUTION WIDTH 15.5 % (11.5-14.5); WHITE BLOOD COUNT 10.3 X10'3 (4.5-11.0)
[2021-08-31 06:09] LABS: HEMATOCRIT 20.3 % (35.0-45.0)
[2021-08-31 06:28] LABS: ALANINE AMINOTRANSFERASE 23 U/L (12-78); ALBUMIN 2.5 G/DL (3.4-5.0); ALKALINE PHOSPHATASE 115 IU/L (46-116); ANION GAP 15 (8-16); ASPARTATE AMINO TRANSFERASE 59 U/L (10-37); BILIRUBIN,TOTAL 12.1 MG/DL (0.1-1.0); BLOOD UREA NITROGEN 96 MG/DL (7-18); BUN/CREATININE RATIO 16.9 (6.6-38.0); CALCIUM 8.6 MG/DL (8.5-10.1); CHLORIDE 97 MMOL/L (99-107); CREATININE 5.69 MG/DL (0.40-0.90); GLUCOSE 80 MG/DL (70-104); POTASSIUM 4.2 MMOL/L (3.5-5.1); SODIUM 131 MMOL/L (135-145); TOTAL CARBON DIOXIDE 19.2 MMOL/L (24-32); eGFR 8 ML/MIN
[2021-08-31 06:29] LABS: ALBUMIN/GLOBULIN RATIO 0.9 (1.1-1.5); TOTAL PROTEIN 5.4 G/DL (6.4-8.2)
--- NOTE | 2021-08-31 06:38 | NUR ---
Critical labs of Hgb 7.0 and Hct of 20.[address] Rendon. No orders given, stated to hold off and wait to see if it comes up on its own. Relayed message to LORNE DANIELLE.
--- NOTE | 2021-08-31 06:52 | NUR ---
Patient in room MED 317. I have received report from LOLIS HADLEY and had the opportunity to ask questions and assume patient care.
[2021-08-31 06:59] LABS: TOTAL CELLS COUNTED 100
[2021-08-31 07:00] LABS: PLATELET ESTIMATE DECREASED
[2021-08-31 07:01] LABS: ANISOCYTOSIS 1+
--- NOTE | 2021-08-31 07:16 | NUR ---
PAGER ID: [phone] MESSAGE: [phone] CAROLINA ESPINOZA HEMOGLOBIN CRITICAL AT 7.0 DOWN FROM 10.1. PLT 69. PLEASE ADVISE NETTIE [phone]
[2021-08-31] MEDS: ondansetron/PF 4mg/2ml inj IV PRN ×2 (07:32→23:42)
[2021-08-31] MEDS: lactulose 20gm/30ml cup PO SCH ×4 (07:41→20:41)
[2021-08-31] MEDS: levoTHYROXINE 25mcg tablet PO SCH (07:43)
[2021-08-31] MEDS: levoTHYROXINE 112mcg tablet PO SCH (07:43)
[2021-08-31] MEDS: docusate sod 100mg capsule PO SCH ×2 (07:43→20:00)
[2021-08-31] MEDS: propranolol LA 60 MG cap.SA.24H PO SCH ×2 (07:49→20:00)
--- NOTE | 2021-08-31 08:45 | NUR ---
Spoke with MD regarding critical h/h and platelet count, no interventions to be done at this time besides sending a stool sample for blood. Also addressed that patient is strict intake and output and is not making a lot of urine; rowley to be placed. PT also to be ordered as patient is very weak.
[2021-08-31 11:10] LABS: CLARITY,URINE CLEAR (Clear); GLUCOSE, URINE NEGATIVE (Neg); KETONES,URINE NEGATIVE (Neg); LEUKOCYTE ESTERASE ,URINE NEGATIVE (Neg); NITRITES, URINE NEGATIVE (Neg); OCCULT BLOOD,URINE NEGATIVE (Neg); PROTEIN,URINE NEGATIVE (Neg); UROBILINOGEN,URINE 0.2 E.U/dL (0.2-1.0)
[2021-08-31 11:12] LABS: COLOR,URINE DARK YELLOW (Yellow); UA COLLECTION TYPE FOLEY CATH; URINE AMPHETAMINE SCREEN NEGATIVE (Neg); URINE BARBITUATE SCREEN NEGATIVE (Neg); URINE BENZODIAZEPINES SCREEN NEGATIVE (Neg); URINE CANNABINOID SCREEN NEGATIVE (Neg); URINE COCAINE SCREEN NEGATIVE (Neg); URINE METHADONE SCREEN NEGATIVE (Neg); URINE OPIATE SCREEN NEGATIVE (Neg); URINE PHENCYCLIDINE SCREEN NEGATIVE (Neg)
--- NOTE | 2021-08-31 12:00 | NUR ---
Angio at bedside to perform paracentesis; 1300 mls removed.
[2021-08-31 13:34] LABS: TOTAL PROTEIN,BODY FLUID < 2.0 G/DL
[2021-08-31 13:39] LABS: OCCULT BLOOD STOOL POSITIVE (Neg)
--- NOTE | 2021-08-31 13:42 | NUR ---
PAGER ID: [phone] MESSAGE: [phone], Ceferino patient had a medium sized black tarry stool, sample sent and positive for blood. teresa [phone]
[2021-08-31 13:43] LABS: BFAPPEAR CLEAR
[2021-08-31 13:44] LABS: BF MESOTHELIAL CELLS FEW; BF RBC COUNT 280 /CU MM; BF WBC COUNT 260 /CU MM (0-1000); BFCOLOR YELLOW; BFVOLUME 60 ML; LYMPHOCYTES,BODY FLUID 39 %; MONOCYTES,BODY FLUID 12 %; NEUTROPHILS,BODY FLUID 49 %
--- NOTE | 2021-08-31 13:44 | NUR ---
PAGER ID: [phone] MESSAGE: [phone] Manoharaluchandrika she has also been hypotensive today, maps all above 60 but right now her pressure is 85/54 map of 64/ teresa [phone]
[2021-08-31 13:53] LABS: CLARITY,URINE CLEAR (Clear); COLOR,URINE Dark Yellow (Yellow); GLUCOSE, URINE Negative (Neg); KETONES,URINE Negative (Neg); OCCULT BLOOD,URINE NEGATIVE (Neg); PROTEIN,URINE Negative (Neg); UA COLLECTION TYPE FOLEY CATH
[2021-08-31 13:54] LABS: LEUKOCYTE ESTERASE ,URINE NEGATIVE (Neg); NITRITES, URINE NEGATIVE (Neg); UROBILINOGEN,URINE 0.2 E.U/dL (0.2-1.0)
[2021-08-31] MEDS: acamprosate DR 333mg Tablet PO SCH ×2 (13:55→19:57)
[2021-08-31 14:19] LABS: TOTAL PROTEIN,URINE RANDOM 21.3 MG/DL
[2021-08-31 14:44] LABS: UA EOSINOPHILS NO EOS /HPF
--- NOTE | 2021-08-31 14:54 | NUR ---
Spoke with MD regarding blood in stool and positive lab. Protonix 40mg bid IV to be ordered along with q12 hour CBC.
[2021-08-31] MEDS: pantoprazole 40MG/NS 100ML BAG 100 ML IV SCH ×2 (16:11→22:39)
[2021-08-31 17:09] LABS: BASOPHILS # (AUTO) 0.1 X10'3 (0-0.2); BASOPHILS % (AUTO) 0.8 % (0-1); EOSINOPHILS # (AUTO) 0.3 X10'3 (0-0.9); EOSINOPHILS % (AUTO) 3.4 % (0-6); HEMATOCRIT 22.5 % (35.0-45.0); HEMOGLOBIN 7.6 g/dl (12.0-16.0); LYMPHOCYTES # (AUTO) 1.3 X10'3 (1.1-4.8); LYMPHOCYTES % (AUTO) 14.4 % (21-51); MEAN CORPUSCULAR HEMOGLOBIN 36.3 PG (27.0-31.0); MEAN CORPUSCULAR HGB CONC 33.8 g/dL (33.0-36.5); MEAN CORPUSCULAR VOLUME 107.5 FL (78-98); MEAN PLATELET VOLUME 11.6 FL (7.4-10.4); MONOCYTES # (AUTO) 0.7 X10'3 (0-0.9); MONOCYTES % (AUTO) 7.6 % (2-12); NEUTROPHILS # (AUTO) 6.8 X10'3 (1.8-7.7); NEUTROPHILS % (AUTO) 73.8 % (42-75); PLATELET COUNT 69 X10'3 (140-440); RED BLOOD COUNT 2.09 X10'6 (4.20-5.60); RED CELL DISTRIBUTION WIDTH 15.6 % (11.5-14.5); WHITE BLOOD COUNT 9.2 X10'3 (4.5-11.0)
--- NOTE | 2021-08-31 17:11 | NUR ---
PAGER ID: [phone] MESSAGE: Kristina De La Vega, does not have nicotine patch ordered and is asking for one. May i order it? teresa [phone]
[2021-08-31] MEDS: nicotine 14mg patch - 24hr TD SCH (17:30)
[2021-08-31] MEDS ORDERED: nicotine 14mg patch - 24hr TD SCH (18:10)
--- NOTE | 2021-08-31 18:27 | NUR ---
Problems reprioritized. Patient report given, questions answered & plan of care reviewed with LOLIS Gonzalez.
--- NOTE | 2021-08-31 22:14 | NUR ---
pt c/o having "a dizzy headache" but does not want medication for it. "I'll just rest a while". will reevaluate. noted BP stable low as it has been the rest of the day. up with assist only to BSC. bed alarm active
[2021-09-01] VITALS (30 sets, daily range): BP systolic 77–132; BP diastolic 43–79
[2021-09-01] MEDS: albumin (human) 25% 100ml IV 100 ML IV SCH ×4 (01:58→20:31)
--- NOTE | 2021-09-01 02:11 | NUR ---
pt snoring. noted decreased BP. albumin given. freq VS to monitor BP. no symptoms distress.
[2021-09-01 03:10] LABS: BASOPHILS # (AUTO) 0.1 X10'3 (0-0.2); BASOPHILS % (AUTO) 1.2 % (0-1); EOSINOPHILS # (AUTO) 0.4 X10'3 (0-0.9); EOSINOPHILS % (AUTO) 4.5 % (0-6); LYMPHOCYTES # (AUTO) 1.3 X10'3 (1.1-4.8); LYMPHOCYTES % (AUTO) 16.4 % (21-51); MEAN CORPUSCULAR HEMOGLOBIN 36.4 PG (27.0-31.0); MEAN CORPUSCULAR HGB CONC 33.7 g/dL (33.0-36.5); MEAN CORPUSCULAR VOLUME 108.1 FL (78-98); MEAN PLATELET VOLUME 11.4 FL (7.4-10.4); MONOCYTES # (AUTO) 0.5 X10'3 (0-0.9); MONOCYTES % (AUTO) 6.9 % (2-12); NEUTROPHILS # (AUTO) 5.6 X10'3 (1.8-7.7); PLATELET COUNT 57 X10'3 (140-440); RED BLOOD COUNT 1.63 X10'6 (4.20-5.60); RED CELL DISTRIBUTION WIDTH 15.8 % (11.5-14.5); WHITE BLOOD COUNT 7.9 X10'3 (4.5-11.0)
[2021-09-01 03:24] LABS: ALANINE AMINOTRANSFERASE 17 U/L (12-78); ALBUMIN 3.3 G/DL (3.4-5.0); ALKALINE PHOSPHATASE 90 IU/L (46-116); ANION GAP 18 (8-16); ASPARTATE AMINO TRANSFERASE 50 U/L (10-37); BILIRUBIN,TOTAL 10.4 MG/DL (0.1-1.0); BLOOD UREA NITROGEN 94 MG/DL (7-18); BUN/CREATININE RATIO 18.4 (6.6-38.0); CALCIUM 8.8 MG/DL (8.5-10.1); CHLORIDE 101 MMOL/L (99-107); GLUCOSE 89 MG/DL (70-104); SODIUM 135 MMOL/L (135-145); TOTAL CARBON DIOXIDE 16.3 MMOL/L (24-32); eGFR 9 ML/MIN
[2021-09-01 03:26] LABS: ALBUMIN/GLOBULIN RATIO 1.7 (1.1-1.5); HEMOGLOBIN 5.9 g/dl (12.0-16.0); TOTAL PROTEIN 5.3 G/DL (6.4-8.2)
--- NOTE | 2021-09-01 04:15 | NUR ---
fluid bolus 250ml given for decreased BP. see VS. trying to keep map over 60. no distress from patient.
[2021-09-01 05:02] LABS: PLATELET ESTIMATE DECREASED; TOTAL CELLS COUNTED 100
[2021-09-01 05:03] LABS: LARGE PLATELETS FEW; TARGET CELLS FEW
[2021-09-01 05:04] LABS: ANISOCYTOSIS FEW
[2021-09-01 05:06] LABS: HYPOCHROMASIA 1+; POLYCHROMASIA FEW
--- NOTE | 2021-09-01 06:00 | NUR ---
reported to days. noted blood not ready yet. BP low but map over 60. pt A/O x4 but resting. aware of bed rest and NPO
--- NOTE | 2021-09-01 06:20 | NUR ---
received patient report from LOLIS Gonzalez
--- NOTE | 2021-09-01 06:44 | NUR ---
Blood transfusion started at 0642. Noted some bleeding in patients mouth; will update hospitalist when they come on shift.
[2021-09-01] MEDS: levoTHYROXINE 112mcg tablet PO SCH (07:00)
[2021-09-01] MEDS: levoTHYROXINE 25mcg tablet PO SCH (07:00)
--- NOTE | 2021-09-01 07:04 | NUR ---
PAGER ID: [phone] MESSAGE: [phone] Arianna Juarez H+H this am 5.9/17.6. 2units of blood ordered. Plt are 57 and she has bleeding gums. Pt NPO for procedure ? Meka [phone]
[2021-09-01] MEDS: ondansetron/PF 4mg/2ml inj IV PRN (07:43)
[2021-09-01] MEDS: docusate sod 100mg capsule PO SCH ×2 (08:00→20:00)
[2021-09-01] MEDS: acamprosate DR 333mg Tablet PO SCH ×3 (08:00→20:33)
[2021-09-01] MEDS: lactulose 20gm/30ml cup PO SCH ×4 (08:00→20:32)
[2021-09-01] MEDS: propranolol LA 60 MG cap.SA.24H PO SCH ×2 (08:00→20:33)
[2021-09-01] MEDS: pantoprazole 40MG/NS 100ML BAG 100 ML IV SCH ×5 (08:00→20:32)
[2021-09-01 08:16] LABS: HEMATOCRIT 17.6 % (35.0-45.0)
[2021-09-01] MEDS ORDERED: octreotide inj. 1,250 MCG in normal saline 250ml IV soln 243.75 ML IV SCH (08:20)
[2021-09-01] MEDS: morphine 2 MG/ML inj. syringe IV PRN ×2 (08:40→13:30)
[2021-09-01] MEDS: nicotine 14mg patch - 24hr TD SCH (08:52)
[2021-09-01 11:33] LABS: HEMATOCRIT 22.9 % (35.0-45.0); HEMOGLOBIN 7.8 g/dl (12.0-16.0); MEAN CORPUSCULAR HEMOGLOBIN 35.3 PG (27.0-31.0); MEAN CORPUSCULAR HGB CONC 34.1 g/dL (33.0-36.5); MEAN CORPUSCULAR VOLUME 103.4 FL (78-98); MEAN PLATELET VOLUME 11.5 FL (7.4-10.4); PLATELET COUNT 61 X10'3 (140-440); RED BLOOD COUNT 2.21 X10'6 (4.20-5.60); RED CELL DISTRIBUTION WIDTH 18.2 % (11.5-14.5); WHITE BLOOD COUNT 8.6 X10'3 (4.5-11.0)
--- NOTE | 2021-09-01 13:11 | NUR ---
Patient in room MED 317. I have received report from Bibi (student) and had the opportunity to ask questions and assume patient care.
--- NOTE | 2021-09-01 13:23 | NUR ---
Spoke to blood bank regarding blood tranfusion. [facility] telling me i need to transfuse in 3 hours policys and procedures says 4. blood bank verifies this that blood must be transfused over 4 hours at the most.
--- NOTE | 2021-09-01 16:40 | NUR ---
Patient and complained that the GI lab did not come to take the patient for her EGD at 1430 as initially indicated. They felt like they were not treated appropriately and demanded to speak with medical sales representative. Charge nurse, community association manager, and GI lab came to talk to them and address the issue but they were not satisfied. Patient complained that she was kept NPO too long for a procedure that is being done so late in the day. RN spoke with medical sales representative who called patient's physician to speak to on the phone. GI doctor is currently tied up at [facility] in an emergency procedure.
[2021-09-01 17:01] LABS: BASOPHILS # (AUTO) 0.1 X10'3 (0-0.2); EOSINOPHILS # (AUTO) 0.3 X10'3 (0-0.9); EOSINOPHILS % (AUTO) 3.4 % (0-6); HEMATOCRIT 27.7 % (35.0-45.0); HEMOGLOBIN 9.5 g/dl (12.0-16.0); LYMPHOCYTES # (AUTO) 1.3 X10'3 (1.1-4.8); MEAN CORPUSCULAR HEMOGLOBIN 34.7 PG (27.0-31.0); MEAN CORPUSCULAR HGB CONC 34.3 g/dL (33.0-36.5); MEAN PLATELET VOLUME 11.7 FL (7.4-10.4); MONOCYTES # (AUTO) 0.5 X10'3 (0-0.9); MONOCYTES % (AUTO) 5.2 % (2-12); NEUTROPHILS # (AUTO) 7.7 X10'3 (1.8-7.7); NEUTROPHILS % (AUTO) 77.4 % (42-75); PLATELET COUNT 62 X10'3 (140-440); RED BLOOD COUNT 2.74 X10'6 (4.20-5.60); RED CELL DISTRIBUTION WIDTH 19.8 % (11.5-14.5); WHITE BLOOD COUNT 9.9 X10'3 (4.5-11.0)
[2021-09-01] MEDS ORDERED: LIDOcaine Viscous 15ml cup ONE (17:10)
[2021-09-01] MEDS ORDERED: MIDAZolam 1 MG/ML 5ML VIAL ONE (17:10)
[2021-09-01] MEDS ORDERED: fentaNYL/PF 50MCG/1 ML 2ML syringe ONE (17:10)
--- NOTE | 2021-09-01 18:14 | NUR ---
Patient in room MED 317. I have received report from LOLIS Alex and LOLIS Beckman and had the opportunity to ask questions and assume patient care.
--- NOTE | 2021-09-01 18:29 | NUR ---
Problems reprioritized. Patient report given, questions answered & plan of care reviewed with LOLIS GUTIERREZ.
[2021-09-01] MEDS: normal saline 1000ml 1,000 ML IV SCH ×2 (20:34→23:56)
[2021-09-01 23:03] LABS: HEMATOCRIT 25.9 % (35.0-45.0); HEMOGLOBIN 8.9 g/dl (12.0-16.0); MEAN CORPUSCULAR HEMOGLOBIN 34.5 PG (27.0-31.0); MEAN CORPUSCULAR HGB CONC 34.2 g/dL (33.0-36.5); MEAN PLATELET VOLUME 10.7 FL (7.4-10.4); PLATELET COUNT 57 X10'3 (140-440); RED BLOOD COUNT 2.57 X10'6 (4.20-5.60); RED CELL DISTRIBUTION WIDTH 19.8 % (11.5-14.5); WHITE BLOOD COUNT 9.3 X10'3 (4.5-11.0)
[2021-09-02] MEDS: ondansetron/PF 4mg/2ml inj IV PRN ×5 (00:41→22:05)
[2021-09-02] MEDS: HYDROcodone/acetaminophen 5mg/325mg tablet PO PRN (00:41)
[2021-09-02 01:59] VITALS: BP 112/62
[2021-09-02] MEDS: albumin (human) 25% 100ml IV 100 ML IV SCH (02:05)
[2021-09-02] MEDS: pantoprazole 40MG/NS 100ML BAG 100 ML IV SCH (02:05)
[2021-09-02] MEDS ORDERED: LORazepam 2 mg/ml vial IV PRN (02:35)
[2021-09-02 06:00] VITALS: BP 105/66
[2021-09-02 06:59] LABS: ALANINE AMINOTRANSFERASE 20 U/L (12-78); ALBUMIN 4.2 G/DL (3.4-5.0); ALBUMIN/GLOBULIN RATIO 2.5 (1.1-1.5); ALKALINE PHOSPHATASE 81 IU/L (46-116); ANION GAP 17 (8-16); ASPARTATE AMINO TRANSFERASE 55 U/L (10-37); BLOOD UREA NITROGEN 81 MG/DL (7-18); BUN/CREATININE RATIO 22.2 (6.6-38.0); CALCIUM 9.3 MG/DL (8.5-10.1); CHLORIDE 107 MMOL/L (99-107); CREATININE 3.65 MG/DL (0.40-0.90); GLUCOSE 120 MG/DL (70-104); POTASSIUM 4.6 MMOL/L (3.5-5.1); SODIUM 139 MMOL/L (135-145); TOTAL CARBON DIOXIDE 15.3 MMOL/L (24-32); TOTAL PROTEIN 5.9 G/DL (6.4-8.2); eGFR 13 ML/MIN
[2021-09-02 07:04] LABS: BASOPHILS # (AUTO) 0.1 X10'3 (0-0.2); BASOPHILS % (AUTO) 0.5 % (0-1); EOSINOPHILS # (AUTO) 0.3 X10'3 (0-0.9); EOSINOPHILS % (AUTO) 2.6 % (0-6); HEMATOCRIT 25.3 % (35.0-45.0); HEMOGLOBIN 8.7 g/dl (12.0-16.0); LYMPHOCYTES # (AUTO) 0.6 X10'3 (1.1-4.8); LYMPHOCYTES % (AUTO) 5.4 % (21-51); MEAN CORPUSCULAR HEMOGLOBIN 35.1 PG (27.0-31.0); MEAN CORPUSCULAR HGB CONC 34.4 g/dL (33.0-36.5); MEAN CORPUSCULAR VOLUME 102.1 FL (78-98); MEAN PLATELET VOLUME 11.1 FL (7.4-10.4); MONOCYTES # (AUTO) 0.4 X10'3 (0-0.9); MONOCYTES % (AUTO) 3.7 % (2-12); NEUTROPHILS # (AUTO) 9.3 X10'3 (1.8-7.7); NEUTROPHILS % (AUTO) 87.8 % (42-75); PLATELET COUNT 59 X10'3 (140-440); RED BLOOD COUNT 2.48 X10'6 (4.20-5.60); RED CELL DISTRIBUTION WIDTH 20.1 % (11.5-14.5); WHITE BLOOD COUNT 10.6 X10'3 (4.5-11.0)
[2021-09-02] MEDS ORDERED: metoclopramide 5 mg/ml inj IV PRN (09:10)
[2021-09-02] MEDS: lactulose 20gm/30ml cup PO SCH ×4 (09:25→20:04)
[2021-09-02] MEDS: acamprosate DR 333mg Tablet PO SCH ×3 (09:26→20:05)
[2021-09-02] MEDS: levoTHYROXINE 25mcg tablet PO SCH (09:26)
[2021-09-02] MEDS: docusate sod 100mg capsule PO SCH ×2 (09:26→20:05)
[2021-09-02] MEDS: levoTHYROXINE 112mcg tablet PO SCH (09:26)
[2021-09-02] MEDS: nicotine 14mg patch - 24hr TD SCH (09:27)
[2021-09-02] MEDS: propranolol LA 60 MG cap.SA.24H PO SCH ×2 (09:27→20:05)
[2021-09-02 09:28] LABS: ANISOCYTOSIS 3+; PLATELET ESTIMATE DECREASED; TOTAL CELLS COUNTED 100
[2021-09-02 09:29] LABS: BURR CELLS FEW
[2021-09-02] MEDS: pantoprazole 40mg Tablet.DR PO SCH ×2 (09:32→20:05)
[2021-09-02 10:00] VITALS: BP 112/65
[2021-09-02 11:20] LABS: HEMATOCRIT 26.3 % (35.0-45.0); HEMOGLOBIN 8.9 g/dl (12.0-16.0); MEAN CORPUSCULAR HEMOGLOBIN 34.8 PG (27.0-31.0); MEAN CORPUSCULAR VOLUME 102.4 FL (78-98); PLATELET COUNT 61 X10'3 (140-440); RED BLOOD COUNT 2.57 X10'6 (4.20-5.60); RED CELL DISTRIBUTION WIDTH 19.8 % (11.5-14.5); WHITE BLOOD COUNT 10.6 X10'3 (4.5-11.0)
[2021-09-02 14:00] VITALS: BP 114/70
[2021-09-02 16:44] LABS: BASOPHILS % (AUTO) 0.4 % (0-1); EOSINOPHILS # (AUTO) 0.3 X10'3 (0-0.9); EOSINOPHILS % (AUTO) 2.9 % (0-6); HEMATOCRIT 25.2 % (35.0-45.0); HEMOGLOBIN 8.7 g/dl (12.0-16.0); LYMPHOCYTES # (AUTO) 0.6 X10'3 (1.1-4.8); LYMPHOCYTES % (AUTO) 5.7 % (21-51); MEAN CORPUSCULAR HGB CONC 34.3 g/dL (33.0-36.5); MEAN CORPUSCULAR VOLUME 102.2 FL (78-98); MEAN PLATELET VOLUME 10.7 FL (7.4-10.4); MONOCYTES # (AUTO) 0.4 X10'3 (0-0.9); MONOCYTES % (AUTO) 3.6 % (2-12); NEUTROPHILS # (AUTO) 9.6 X10'3 (1.8-7.7); NEUTROPHILS % (AUTO) 87.4 % (42-75); PLATELET COUNT 63 X10'3 (140-440); RED BLOOD COUNT 2.47 X10'6 (4.20-5.60); RED CELL DISTRIBUTION WIDTH 19.5 % (11.5-14.5)
[2021-09-02 18:00] VITALS: BP 126/75
--- NOTE | 2021-09-02 18:32 | NUR ---
Orientee documentation: I have reviewed and agree with all interventions, assessments performed and documented by LOLIS Rain.
--- NOTE | 2021-09-02 18:35 | NUR ---
Problems reprioritized. Patient report given, questions answered & plan of care reviewed with LOLIS Hartley.
[2021-09-02 22:00] VITALS: BP_SYST 123; BP_SYST 146; BP_DIAS 108; BP_DIAS 71
[2021-09-02] MEDS: vancomycin/NS 1 GM ADD-VANTAGE 250 ML IV SCH (22:02)
[2021-09-02] MEDS: morphine 2 MG/ML inj. syringe IV PRN (22:03)
[2021-09-03] MEDS: morphine 2 MG/ML inj. syringe IV PRN (01:52)
[2021-09-03 02:00] VITALS: BP 129/93
[2021-09-03 06:00] VITALS: BP 135/86
[2021-09-03 06:41] LABS: BASOPHILS # (AUTO) 0.1 X10'3 (0-0.2); BASOPHILS % (AUTO) 0.9 % (0-1); EOSINOPHILS # (AUTO) 0.1 X10'3 (0-0.9); EOSINOPHILS % (AUTO) 0.9 % (0-6); HEMATOCRIT 28.6 % (35.0-45.0); HEMOGLOBIN 9.6 g/dl (12.0-16.0); LYMPHOCYTES # (AUTO) 0.4 X10'3 (1.1-4.8); LYMPHOCYTES % (AUTO) 3.2 % (21-51); MEAN CORPUSCULAR HEMOGLOBIN 34.8 PG (27.0-31.0); MEAN CORPUSCULAR HGB CONC 33.5 g/dL (33.0-36.5); MEAN CORPUSCULAR VOLUME 103.7 FL (78-98); MONOCYTES # (AUTO) 0.5 X10'3 (0-0.9); MONOCYTES % (AUTO) 3.6 % (2-12); NEUTROPHILS # (AUTO) 11.9 X10'3 (1.8-7.7); NEUTROPHILS % (AUTO) 91.4 % (42-75); PLATELET COUNT 67 X10'3 (140-440); RED BLOOD COUNT 2.76 X10'6 (4.20-5.60); RED CELL DISTRIBUTION WIDTH 20.3 % (11.5-14.5)
[2021-09-03 07:04] LABS: ALANINE AMINOTRANSFERASE 27 U/L (12-78); ALBUMIN 3.8 G/DL (3.4-5.0); ALKALINE PHOSPHATASE 99 IU/L (46-116); ANION GAP 20 (8-16); BILIRUBIN,TOTAL 16.9 MG/DL (0.1-1.0); BLOOD UREA NITROGEN 72 MG/DL (7-18); BUN/CREATININE RATIO 23.1 (6.6-38.0); CHLORIDE 110 MMOL/L (99-107); CREATININE 3.12 MG/DL (0.40-0.90); SODIUM 142 MMOL/L (135-145); eGFR 15 ML/MIN
[2021-09-03 07:08] LABS: ALBUMIN/GLOBULIN RATIO 1.5 (1.1-1.5); ASPARTATE AMINO TRANSFERASE 67 U/L (10-37); GLUCOSE 139 MG/DL (70-104); POTASSIUM 4.2 MMOL/L (3.5-5.1); TOTAL PROTEIN 6.4 G/DL (6.4-8.2)
[2021-09-03 07:09] LABS: TOTAL CARBON DIOXIDE 12.1 MMOL/L (24-32)
--- NOTE | 2021-09-03 07:36 | NUR ---
Paged Dr eBck PAGER ID: [phone] MESSAGE: [phone]. Arianna Coyne. Critical CO2 05.18. Estefanía [phone]
[2021-09-03] MEDS: docusate sod 100mg capsule PO SCH ×2 (08:00→20:20)
[2021-09-03 08:14] LABS: ANISOCYTOSIS 3+; PLATELET ESTIMATE DECREASED; TOTAL CELLS COUNTED 100
[2021-09-03 08:15] LABS: BURR CELLS FEW; SCHISTOCYTES FEW
[2021-09-03] MEDS: pantoprazole 40mg Tablet.DR PO SCH ×2 (08:15→20:19)
[2021-09-03] MEDS: propranolol LA 60 MG cap.SA.24H PO SCH ×2 (08:15→20:20)
[2021-09-03] MEDS: vancomycin/NS 1 GM ADD-VANTAGE 250 ML IV SCH (08:15)
[2021-09-03] MEDS: acamprosate DR 333mg Tablet PO SCH ×3 (08:15→20:19)
[2021-09-03] MEDS: lactulose 20gm/30ml cup PO SCH ×4 (08:15→20:19)
[2021-09-03] MEDS: levoTHYROXINE 112mcg tablet PO SCH (08:15)
[2021-09-03] MEDS: nicotine 14mg patch - 24hr TD SCH (08:16)
[2021-09-03] MEDS: levoTHYROXINE 25mcg tablet PO SCH (08:16)
[2021-09-03 09:15] LABS: ABG BASE EXCESS -10.2 mmol/L (-2.0-2.0); ABG HCO3 14.1 mmol/L (22.0-26.0); ABG PCO2 (T) 26.7 mmHg (32.0-45.0); ALLEN'S TEST POSITIVE; FCOHb 0.6 % (0.0-3.9); FMetHb 0.4 % (0.0-1.5); FO2Hb 92.1 % (94-97); PATIENT TEMPERATURE 37.3; TOTAL HEMOGLOBIN 9.8 G/dl (12.0-16.0)
[2021-09-03 10:00] VITALS: BP 128/88
[2021-09-03 11:20] LABS: HEMATOCRIT 28.4 % (35.0-45.0); HEMOGLOBIN 9.5 g/dl (12.0-16.0); MEAN CORPUSCULAR HGB CONC 33.6 g/dL (33.0-36.5); MEAN CORPUSCULAR VOLUME 104.4 FL (78-98); MEAN PLATELET VOLUME 10.7 FL (7.4-10.4); PLATELET COUNT 67 X10'3 (140-440); RED BLOOD COUNT 2.72 X10'6 (4.20-5.60); RED CELL DISTRIBUTION WIDTH 20.1 % (11.5-14.5); WHITE BLOOD COUNT 15.7 X10'3 (4.5-11.0)
--- NOTE | 2021-09-03 11:55 | NUR ---
Paged Dr Beck PAGER ID: [phone] MESSAGE: [phone]. DorethaArianna. FYI Ammonia 88. Estefanía [phone]
[2021-09-03 15:00] VITALS: BP 136/90
[2021-09-03] MEDS: HYDROcodone/acetaminophen 5mg/325mg tablet PO PRN ×2 (15:19→20:20)
--- NOTE | 2021-09-03 17:58 | NUR ---
Paged Dr Beck PAGER ID: [phone] MESSAGE: [phone]. Arianna Coyne. Dr Bob reqesting to add Rifaximin pls. Thanks, Estefanía [phone]
[2021-09-03 18:00] VITALS: BP 127/85
[2021-09-03 18:00] LABS: BASOPHILS # (AUTO) 0.1 X10'3 (0-0.2); BASOPHILS % (AUTO) 0.6 % (0-1); EOSINOPHILS # (AUTO) 0.1 X10'3 (0-0.9); EOSINOPHILS % (AUTO) 0.6 % (0-6); HEMATOCRIT 26.3 % (35.0-45.0); HEMOGLOBIN 8.8 g/dl (12.0-16.0); LYMPHOCYTES # (AUTO) 0.7 X10'3 (1.1-4.8); LYMPHOCYTES % (AUTO) 4.6 % (21-51); MEAN CORPUSCULAR HEMOGLOBIN 34.8 PG (27.0-31.0); MEAN CORPUSCULAR HGB CONC 33.3 g/dL (33.0-36.5); MEAN CORPUSCULAR VOLUME 104.5 FL (78-98); MEAN PLATELET VOLUME 11.2 FL (7.4-10.4); MONOCYTES # (AUTO) 0.6 X10'3 (0-0.9); MONOCYTES % (AUTO) 3.9 % (2-12); NEUTROPHILS # (AUTO) 13.4 X10'3 (1.8-7.7); NEUTROPHILS % (AUTO) 90.3 % (42-75); PLATELET COUNT 64 X10'3 (140-440); RED BLOOD COUNT 2.52 X10'6 (4.20-5.60); WHITE BLOOD COUNT 14.9 X10'3 (4.5-11.0)
[2021-09-03] MEDS: busPIRone 5mg tablet PO PRN (20:19)
[2021-09-04] MEDS: morphine 2 MG/ML inj. syringe IV PRN (02:53)
[2021-09-04] MEDS: normal saline 1000ml 1,000 ML IV SCH (03:00)
[2021-09-04 05:58] LABS: BASOPHILS # (AUTO) 0.1 X10'3 (0-0.2); BASOPHILS % (AUTO) 0.5 % (0-1); EOSINOPHILS # (AUTO) 0.3 X10'3 (0-0.9); EOSINOPHILS % (AUTO) 2.2 % (0-6); HEMATOCRIT 25.6 % (35.0-45.0); HEMOGLOBIN 8.6 g/dl (12.0-16.0); LYMPHOCYTES # (AUTO) 0.8 X10'3 (1.1-4.8); LYMPHOCYTES % (AUTO) 6.1 % (21-51); MEAN CORPUSCULAR HEMOGLOBIN 34.8 PG (27.0-31.0); MEAN CORPUSCULAR HGB CONC 33.5 g/dL (33.0-36.5); MEAN CORPUSCULAR VOLUME 103.8 FL (78-98); MEAN PLATELET VOLUME 11.1 FL (7.4-10.4); MONOCYTES # (AUTO) 0.8 X10'3 (0-0.9); MONOCYTES % (AUTO) 5.8 % (2-12); NEUTROPHILS # (AUTO) 11.3 X10'3 (1.8-7.7); NEUTROPHILS % (AUTO) 85.4 % (42-75); PLATELET COUNT 60 X10'3 (140-440); RED BLOOD COUNT 2.47 X10'6 (4.20-5.60); RED CELL DISTRIBUTION WIDTH 19.9 % (11.5-14.5); WHITE BLOOD COUNT 13.2 X10'3 (4.5-11.0)
[2021-09-04 06:08] LABS: ALANINE AMINOTRANSFERASE 27 U/L (12-78); ALBUMIN 3.6 G/DL (3.4-5.0); ALKALINE PHOSPHATASE 91 IU/L (46-116); ANION GAP 15 (8-16); BILIRUBIN,TOTAL 14.9 MG/DL (0.1-1.0); BLOOD UREA NITROGEN 63 MG/DL (7-18); BUN/CREATININE RATIO 22.9 (6.6-38.0); CALCIUM 9.9 MG/DL (8.5-10.1); CHLORIDE 113 MMOL/L (99-107); CREATININE 2.75 MG/DL (0.40-0.90); SODIUM 145 MMOL/L (135-145); TOTAL CARBON DIOXIDE 16.7 MMOL/L (24-32); eGFR 18 ML/MIN
[2021-09-04 06:20] LABS: ASPARTATE AMINO TRANSFERASE 57 U/L (10-37)
[2021-09-04 06:22] LABS: ALBUMIN/GLOBULIN RATIO 1.6 (1.1-1.5); GLUCOSE 106 MG/DL (70-104); POTASSIUM 3.4 MMOL/L (3.5-5.1); TOTAL PROTEIN 5.9 G/DL (6.4-8.2)
[2021-09-04] MEDS: ondansetron/PF 4mg/2ml inj IV PRN (07:27)
[2021-09-04] MEDS: acamprosate DR 333mg Tablet PO SCH ×3 (07:33→19:53)
[2021-09-04] MEDS: levoTHYROXINE 25mcg tablet PO SCH (07:34)
[2021-09-04] MEDS: propranolol LA 60 MG cap.SA.24H PO SCH ×2 (07:34→19:52)
[2021-09-04] MEDS: pantoprazole 40mg Tablet.DR PO SCH ×2 (07:34→19:53)
[2021-09-04] MEDS: levoTHYROXINE 112mcg tablet PO SCH (07:35)
[2021-09-04] MEDS: lactulose 20gm/30ml cup PO SCH ×4 (07:36→20:46)
[2021-09-04] MEDS: nicotine 14mg patch - 24hr TD SCH (07:42)
[2021-09-04] MEDS: docusate sod 100mg capsule PO SCH ×2 (07:43→19:52)
[2021-09-04] MEDS ORDERED: vancomycin inj 500 MG in normal saline 100ml IV soln 100 ML IV SCH (08:00)
--- NOTE | 2021-09-04 08:00 | NUR ---
per Dr. Beck, pt no longer needs to be on fluid restriction
--- NOTE | 2021-09-04 10:10 | NUR ---
Page Sent promotional table spacer PAGER ID: [phone] MESSAGE: Pt Arianna Juarez Rm [id number] 3 of us have tried to place IV w/o success. Can I get an order to place one in the foot? [facility] [phone]
--- NOTE | 2021-09-04 10:33 | NUR ---
Initial: Pt admitted w/ JAXSON, ESLD, hepatic encephalopathy, macrocytic anemia, and GI bleed per EMR. Pt underwent paracentesis 08/31 w/ 1.3L removed per documentation. Currently on Sodium restricted diet w/ mostly 0% intake of meals. Pt states that she does not have an appetite and that her stomach feels sore, though she states that she is willing to try ONS. Recommend Ensure Enlive TID. LBM 09/03 receiving routine lactulose. Will continue to monitor. Recs: 1. Continue Sodium restricted diet per MD 2. Ensure Enlive TID; pending MD verification 3. Bowel care per rx 4. Weekly wts Addendum: 09/04/21 at [address] Amended: Links added.
[2021-09-04 11:00] VITALS: BP 115/76
[2021-09-04 13:34] LABS: HEMATOCRIT 30.6 % (35.0-45.0); HEMOGLOBIN 9.8 g/dl (12.0-16.0); MEAN CORPUSCULAR HEMOGLOBIN 34.7 PG (27.0-31.0); MEAN CORPUSCULAR HGB CONC 32.2 g/dL (33.0-36.5); MEAN PLATELET VOLUME 11.4 FL (7.4-10.4); PLATELET COUNT 62 X10'3 (140-440); RED BLOOD COUNT 2.83 X10'6 (4.20-5.60); RED CELL DISTRIBUTION WIDTH 20.8 % (11.5-14.5); WHITE BLOOD COUNT 14.3 X10'3 (4.5-11.0)
[2021-09-04 15:00] VITALS: BP 125/82
[2021-09-04 16:46] LABS: BASOPHILS # (AUTO) 0.1 X10'3 (0-0.2); BASOPHILS % (AUTO) 0.5 % (0-1); EOSINOPHILS # (AUTO) 0.4 X10'3 (0-0.9); EOSINOPHILS % (AUTO) 3.2 % (0-6); HEMATOCRIT 29.9 % (35.0-45.0); HEMOGLOBIN 9.9 g/dl (12.0-16.0); LYMPHOCYTES # (AUTO) 1.1 X10'3 (1.1-4.8); LYMPHOCYTES % (AUTO) 8.2 % (21-51); MEAN CORPUSCULAR HEMOGLOBIN 34.7 PG (27.0-31.0); MEAN CORPUSCULAR VOLUME 105.2 FL (78-98); MEAN PLATELET VOLUME 11.1 FL (7.4-10.4); MONOCYTES # (AUTO) 0.7 X10'3 (0-0.9); NEUTROPHILS # (AUTO) 11.1 X10'3 (1.8-7.7); NEUTROPHILS % (AUTO) 83.1 % (42-75); PLATELET COUNT 67 X10'3 (140-440); RED BLOOD COUNT 2.84 X10'6 (4.20-5.60); RED CELL DISTRIBUTION WIDTH 20.2 % (11.5-14.5); WHITE BLOOD COUNT 13.4 X10'3 (4.5-11.0)
[2021-09-04] MEDS: acetaminophen 325mg tablet PO PRN (20:49)
--- NOTE | 2021-09-04 22:05 | NUR ---
Patient in room PCU 3028. I have received report from Theresa DANIELLE, and had the opportunity to ask questions and assume patient care.
--- NOTE | 2021-09-05 05:19 | NUR ---
Patient continue to have diarrhea inform md ,patient teaching given to pt due to lactulose it's for theraputic and healing process. verbalize understood.
[2021-09-05 06:00] VITALS: BP 118/68
[2021-09-05 06:28] LABS: HEMATOCRIT 25.6 % (35.0-45.0); HEMOGLOBIN 8.8 g/dl (12.0-16.0); MEAN CORPUSCULAR HGB CONC 34.4 g/dL (33.0-36.5); MEAN CORPUSCULAR VOLUME 104.8 FL (78-98); PLATELET COUNT 66 X10'3 (140-440); RED BLOOD COUNT 2.44 X10'6 (4.20-5.60); RED CELL DISTRIBUTION WIDTH 20.2 % (11.5-14.5); WHITE BLOOD COUNT 10.6 X10'3 (4.5-11.0)
--- NOTE | 2021-09-05 06:33 | NUR ---
Problems reprioritized. Patient report given,to JAIR DANIELLE, questions answered & plan of care reviewed with .
[2021-09-05 07:10] VITALS: BP 114/75
[2021-09-05] MEDS: levoTHYROXINE 25mcg tablet PO SCH (07:35)
[2021-09-05] MEDS: levoTHYROXINE 112mcg tablet PO SCH (07:35)
[2021-09-05] MEDS: nicotine 14mg patch - 24hr TD SCH (07:40)
[2021-09-05] MEDS: pantoprazole 40mg Tablet.DR PO SCH (07:45)
[2021-09-05] MEDS: busPIRone 5mg tablet PO PRN (07:45)
[2021-09-05] MEDS: lactulose 20gm/30ml cup PO SCH ×2 (07:48→13:55)
[2021-09-05] MEDS: docusate sod 100mg capsule PO SCH (07:48)
[2021-09-05] MEDS: propranolol LA 60 MG cap.SA.24H PO SCH (07:49)
[2021-09-05] MEDS: acamprosate DR 333mg Tablet PO SCH ×2 (07:50→13:53)
[2021-09-05 09:41] LABS: HIV ANTIBODY 1&2 RAPID NON-REACTIVE (Neg)
[2021-09-05 10:40] VITALS: BP 103/74
[2021-09-05 11:11] LABS: HEMATOCRIT 31.5 % (35.0-45.0); HEMOGLOBIN 10.4 g/dl (12.0-16.0); MEAN CORPUSCULAR HEMOGLOBIN 34.7 PG (27.0-31.0); MEAN CORPUSCULAR VOLUME 105.2 FL (78-98); PLATELET COUNT 74 X10'3 (140-440); RED CELL DISTRIBUTION WIDTH 20.5 % (11.5-14.5)
--- NOTE | 2021-09-05 11:41 | NUR ---
Charting by Addison BLAND reviewed by Gunner Zaldivar RN
--- NOTE | 2021-09-05 15:47 | NUR ---
Charting by Jennifer BLAND reviewed by Gunner Zaldivar RN
[2021-09-06] MEDS ORDERED: VANCOMYCIN LEVEL IV ONE (07:30)
[2021-09-06 16:31] LABS: HBSAG SCREEN Negative (Negative); HEP A AB, IGM Negative (Negative); HEPATITIS C ANTIBODY <0.1 s/co ratio (0.0-0.9)
== END 2021-09-05 15:00 | disposition home health service (06) | DRG 683 ==
LOC: ER 12:27 → ED HOLD 15:34 → MED 3N 19:50 → PCU 3S 09-03 13:47
PROVIDERS: ADMIT Internal Medicine; ATTEND Internal Medicine
PROC: 0W9G3ZZ Drainage of Peritoneal Cavity, Percutaneous Approach (ICD-10-PCS; 2021-08-31)
PROC: 0DB68ZX Excision of Stomach, Via Natural or Artificial Opening Endoscopic, Diagnostic (ICD-10-PCS; principal; 2021-09-01)
PROC: 30233N1 Transfusion of Nonautologous Red Blood Cells into Peripheral Vein, Percutaneous Approach (ICD-10-PCS; 2021-09-01)
DX: N17.9 Acute kidney failure, unspecified (principal); E87.1 Hypo-osmolality and hyponatremia; K86.1 Other chronic pancreatitis; K92.1 Melena; D62 Acute posthemorrhagic anemia; E87.2 Acidosis; K76.6 Portal hypertension; I85.00 Esophageal varices without bleeding; K72.90 Hepatic failure, unspecified without coma; D69.59 Other secondary thrombocytopenia; F41.9 Anxiety disorder, unspecified; K29.70 Gastritis, unspecified, without bleeding; R19.7 Diarrhea, unspecified; E86.0 Dehydration; R59.0 Localized enlarged lymph nodes; K31.89 Other diseases of stomach and duodenum; D72.829 Elevated white blood cell count, unspecified; K72.10 Chronic hepatic failure without coma; D50.9 Iron deficiency anemia, unspecified; D53.9 Nutritional anemia, unspecified; E03.9 Hypothyroidism, unspecified; E86.1 Hypovolemia; E88.09 Other disorders of plasma-protein metabolism, not elsewhere classified; K70.31 Alcoholic cirrhosis of liver with ascites; N18.9 Chronic kidney disease, unspecified; Z79.899 Other long term (current) drug therapy; Z87.891 Personal history of nicotine dependence; Z88.8 Allergy status to other drugs, medicaments and biological substances
CPT/HCPCS: 36415; 36430; 36600; 43239; 49083; 71045; 74176; 76770; 80053; 80074; 80305; 80320; 81003; 82140; 82272; 82570; 82803; 83036; 83605; 83690; 83935; 84145; 84156; 84157; 84300; 84443; 85007; 85018; 85025; 85027; 85610; 85730; 86703; 86885; 86900; 86901; 86920; 87040; 87070; 87077; 87081; 87186; 87207; 89051; 93005; 94760; 97116; 97161; 97530; 99152; 99285; A4620; C9113; G0378; J2060; J2250; J2270; J2354; J2405; J3010; J3370; J3490; J7030; J7040; J7050; P9016; P9047

== ENCOUNTER 2021-09-30 11:50 | Inpatient (IN) | payer BC ==
[~2021-09-30] VITALS: Ht 170.2 cm; Wt 70.5 kg
[~2021-09-30 11:50] MED LIST changes: +ACAM333T8 PO; +INDLA60C PO; +LACT10SO3 PO; -OMEP20CA16 PO; -PROP60TA19 PO; -SPIR100T5 PO
[2021-09-30] MEDS ORDERED: normal saline 1000ML IV soln IVB ONE (12:00)
[2021-09-30 13:34] LABS: BASOPHILS # (AUTO) 0.1 X10'3 (0-0.2); BASOPHILS % (AUTO) 1.2 % (0-1); EOSINOPHILS # (AUTO) 0.1 X10'3 (0-0.9); EOSINOPHILS % (AUTO) 1.1 % (0-6); HEMATOCRIT 29.8 % (35.0-45.0); HEMOGLOBIN 9.9 g/dl (12.0-16.0); LYMPHOCYTES # (AUTO) 1.1 X10'3 (1.1-4.8); LYMPHOCYTES % (AUTO) 17.1 % (21-51); MEAN CORPUSCULAR HEMOGLOBIN 33.4 PG (27.0-31.0); MEAN CORPUSCULAR HGB CONC 33.1 g/dL (33.0-36.5); MEAN PLATELET VOLUME 11.3 FL (7.4-10.4); MONOCYTES # (AUTO) 0.5 X10'3 (0-0.9); MONOCYTES % (AUTO) 7.2 % (2-12); NEUTROPHILS # (AUTO) 4.7 X10'3 (1.8-7.7); NEUTROPHILS % (AUTO) 73.4 % (42-75); PLATELET COUNT 117 X10'3 (140-440); RED BLOOD COUNT 2.95 X10'6 (4.20-5.60); RED CELL DISTRIBUTION WIDTH 17.3 % (11.5-14.5); WHITE BLOOD COUNT 6.4 X10'3 (4.5-11.0)
[2021-09-30 13:52] LABS: ALANINE AMINOTRANSFERASE 19 U/L (12-78); ALBUMIN 2.9 G/DL (3.4-5.0); ALKALINE PHOSPHATASE 165 IU/L (46-116); ANION GAP 10 (8-16); ASPARTATE AMINO TRANSFERASE 53 U/L (10-37); BILIRUBIN,TOTAL 6.8 MG/DL (0.1-1.0); BLOOD UREA NITROGEN 30 MG/DL (7-18); BUN/CREATININE RATIO 11.7 (6.6-38.0); CALCIUM 9.1 MG/DL (8.5-10.1); CHLORIDE 101 MMOL/L (99-107); CREATININE 2.56 MG/DL (0.40-0.90); ETHANOL < 0.010 GM/DL (0.0-0.010); GLUCOSE 101 MG/DL (70-104); SODIUM 134 MMOL/L (135-145); TOTAL CARBON DIOXIDE 23.2 MMOL/L (24-32); eGFR 19 ML/MIN
[2021-09-30 13:55] LABS: LACTIC SEPSIS 1.7 MMOL/L (0.4-2.0)
[2021-09-30 13:58] LABS: ALBUMIN/GLOBULIN RATIO 0.7 (1.1-1.5); TOTAL PROTEIN 7.2 G/DL (6.4-8.2)
[2021-09-30] MEDS ORDERED: lactulose 20gm/30ml cup PO ONE (14:10)
[2021-09-30 14:30] LABS: CLARITY,URINE CLOUDY (Clear); COLOR,URINE YELLOW (Yellow); GLUCOSE, URINE NEGATIVE (Neg); KETONES,URINE NEGATIVE (Neg); LEUKOCYTE ESTERASE ,URINE MODERATE (Neg); NITRITES, URINE NEGATIVE (Neg); OCCULT BLOOD,URINE TRACE-INTACT (Neg); PH,URINE 6.5 (4.8-8.0); PROTEIN,URINE NEGATIVE (Neg)
[2021-09-30] MEDS ORDERED: NITR100C11 PO (14:30)
[2021-09-30] MEDS ORDERED: BUPR-230 PO (14:30)
[2021-09-30] MEDS ORDERED: GABA300C PO (14:30)
[2021-09-30] MEDS ORDERED: SUMA100T16 PO (14:30)
[2021-09-30] MEDS ORDERED: FURO40TA4 PO (14:30)
[2021-09-30] MEDS ORDERED: ONDA4TAB12 PO (14:30)
[2021-09-30] MEDS ORDERED: FOLI1TAB27 PO (14:30)
[2021-09-30] MEDS ORDERED: OMEP40CA21 PO (14:30)
[2021-09-30] MEDS ORDERED: SPIR50TA5 PO (14:30)
[2021-09-30] MEDS ORDERED: POTA10CA44 PO (14:30)
[2021-09-30 14:32] LABS: UA COLLECTION TYPE STRAIGHT CATH
[2021-09-30 14:35] LABS: RBC,URINE 0-2 /HPF (0-2); WBC,URINE 50-100 /HPF (0-4)
[2021-09-30] MEDS ORDERED: magnesium hydroxide 30ml (MOM) UD suspension PO PRN (14:35)
[2021-09-30] MEDS ORDERED: acetaminophen 325mg tablet PO PRN ×2 (14:35)
[2021-09-30] MEDS ORDERED: clindamycin phosphate inj 600 MG in normal saline 50ml IV soln 50 ML IV ONE (14:35)
[2021-09-30] MEDS ORDERED: morphine 2 MG/ML inj. syringe IV PRN ×2 (14:35)
[2021-09-30] MEDS ORDERED: ondansetron/PF 4mg/2ml inj IV PRN (14:35)
[2021-09-30] MEDS ORDERED: mag hydrox/Alum hydrox/simeth 30ml oral suspension PO PRN (14:35)
[2021-09-30 14:36] LABS: BACTERIA,URINE 4+ /HPF (Neg); MUCUS STRANDS NONE SEEN /LPF (Neg); SQUAMOUS EPITHELIAL CELL,UR NONE SEEN /LPF (FEW); WBC CLUMPS,URINE FEW /HPF (NEGATIVE)
[2021-09-30] MEDS ORDERED: clindamycin 600mg/D5W 50ml 50 ML IV ONE (14:40)
[2021-09-30] MEDS ORDERED: haloperidol lactate 5mg/ml inj IM ONE (14:40)
[2021-09-30 14:48] LABS: URINE AMPHETAMINE SCREEN NEGATIVE (Neg); URINE BARBITUATE SCREEN NEGATIVE (Neg); URINE BENZODIAZEPINES SCREEN NEGATIVE (Neg); URINE CANNABINOID SCREEN NEGATIVE (Neg); URINE COCAINE SCREEN NEGATIVE (Neg); URINE METHADONE SCREEN NEGATIVE (Neg); URINE OPIATE SCREEN NEGATIVE (Neg); URINE PHENCYCLIDINE SCREEN NEGATIVE (Neg)
[2021-09-30 14:53] LABS: ANISOCYTOSIS 1+; LARGE PLATELETS FEW; PLATELET ESTIMATE DECREASED; POLYCHROMASIA FEW
[2021-09-30 14:54] LABS: ROULEAUX 1+; TARGET CELLS 1+
[2021-09-30] MEDS ORDERED: LIDOcaine 1%/PF 5ML 10 MG/ML VIAL ONE (15:50)
[2021-09-30 16:01] VITALS: BP 95/56
[2021-09-30 16:22] VITALS: BP 127/69
[2021-09-30] MEDS: sodium chloride 0.45% 1,000 ML IV SCH ×2 (16:30→17:39)
[2021-09-30 16:51] LABS: BFSOURCE RIGHT PLEURAL FLD; PLEURAL FLUID PH 7.566 (7.63-7.65)
--- NOTE | 2021-09-30 16:53 | NUR ---
Patient in room . I have received report from Zechariah DANIELLE and had the opportunity to ask questions Will assume patient care when patient comes to the floor.
[2021-09-30 17:00] LABS: GLUCOSE,BODY FLUID 101 MG/DL; LDH,BODY FLUID 73 U/L; TOTAL PROTEIN,BODY FLUID 2.8 G/DL
[2021-09-30 17:05] LABS: LYMPHOCYTES,BODY FLUID 56 %; MONOCYTES,BODY FLUID 35 %; NEUTROPHILS,BODY FLUID 9 %
[2021-09-30 17:07] LABS: BF MESOTHELIAL CELLS FEW; BF RBC COUNT 35 /CU MM; BF WBC COUNT 333 /CU MM (0-1000); BFAPPEAR HAZY; BFCOLOR YELLOW; BFVOLUME 60 ML
[2021-09-30 18:00] VITALS: BP 130/66
--- NOTE | 2021-09-30 18:00 | NUR ---
Patient arrived to the floor and was transferred to the bed with a slide board. Patient was sleepy and was at bedside. Patients oriented to the room patients IV fluids started. In the meantime patient became very aggitated. Patients became upset when another patient was walking by his 's room. I had a call out to Dr Beck for medications and a sitter order. Patient started yelling that she needed to pee. I assisted patient onto a bedpan but patient was very confused and was unable to use the bed allen. Patient continued to yell out " stop it stop it stop it. "
--- NOTE | 2021-09-30 18:01 | NUR ---
PAGER ID: [phone] MESSAGE: Alea Freeman [phone] Re: Palomo [phone] Please call re: patient agitated can I please have order for restraints or Ativan?
--- NOTE | 2021-09-30 18:12 | NUR ---
PAGER ID: [phone] MESSAGE: Brissa [phone] Please call needing sitter orders and Ativan ? for [phone] Palomo
--- NOTE | 2021-09-30 18:30 | NUR ---
Discussed with patients the following orders with the oncoming NOC shift LOLIS Camacho. Patients is aware how important it is for patient to take her lactulose and if patient is unable to do so we will have to place an NG tube and put patient in restraints to prevent her from pulling out NG tube. Received orders for a sitter for this patient and also received orders for PRN Ativan. was in agreement with the above plan.
[2021-09-30] MEDS ORDERED: LORazepam 2 mg/ml vial IV PRN (18:45)
[2021-09-30] MEDS: lactulose 20gm/30ml cup PO SCH (18:49)
--- NOTE | 2021-09-30 18:54 | NUR ---
Problems reprioritized. Patient report given, questions answered & plan of care reviewed with Janice DANIELLE.
[2021-09-30] MEDS: docusate sod 100mg capsule PO SCH (19:10)
[2021-09-30 22:00] VITALS: BP 126/56
[2021-10-01] MEDS: lactulose 20gm/30ml cup PO SCH ×3 (01:38→13:57)
--- NOTE | 2021-10-01 06:50 | NUR ---
Problems reprioritized. Patient report given, questions answered & plan of care reviewed with Karen DANIELLE.
[2021-10-01 07:00] VITALS: BP 114/60
[2021-10-01] MEDS ORDERED: ondansetron 4mg rapidly disintigrating tab PO PRN (07:30)
[2021-10-01] MEDS ORDERED: levoFLOXACIN-Levaquin 250mg/D5 50 ML IV SCH (08:00)
[2021-10-01 08:07] LABS: BASOPHILS # (AUTO) 0.1 X10'3 (0-0.2); BASOPHILS % (AUTO) 1.1 % (0-1); EOSINOPHILS # (AUTO) 0.1 X10'3 (0-0.9); HEMATOCRIT 24.4 % (35.0-45.0); HEMOGLOBIN 8.2 g/dl (12.0-16.0); LYMPHOCYTES # (AUTO) 1.6 X10'3 (1.1-4.8); LYMPHOCYTES % (AUTO) 27.4 % (21-51); MEAN CORPUSCULAR HEMOGLOBIN 34.5 PG (27.0-31.0); MEAN CORPUSCULAR HGB CONC 33.7 g/dL (33.0-36.5); MEAN CORPUSCULAR VOLUME 102.1 FL (78-98); MEAN PLATELET VOLUME 11.2 FL (7.4-10.4); MONOCYTES # (AUTO) 0.5 X10'3 (0-0.9); MONOCYTES % (AUTO) 8.5 % (2-12); NEUTROPHILS # (AUTO) 3.6 X10'3 (1.8-7.7); PLATELET COUNT 91 X10'3 (140-440); RED BLOOD COUNT 2.39 X10'6 (4.20-5.60); RED CELL DISTRIBUTION WIDTH 17.2 % (11.5-14.5); WHITE BLOOD COUNT 5.8 X10'3 (4.5-11.0)
[2021-10-01 08:34] LABS: ALANINE AMINOTRANSFERASE 21 U/L (12-78); ALBUMIN 2.3 G/DL (3.4-5.0); ALBUMIN/GLOBULIN RATIO 0.7 (1.1-1.5); ALKALINE PHOSPHATASE 132 IU/L (46-116); ANION GAP 9 (8-16); ASPARTATE AMINO TRANSFERASE 54 U/L (10-37); BILIRUBIN,TOTAL 6.7 MG/DL (0.1-1.0); BLOOD UREA NITROGEN 23 MG/DL (7-18); BUN/CREATININE RATIO 14.5 (6.6-38.0); CALCIUM 8.6 MG/DL (8.5-10.1); CHLORIDE 112 MMOL/L (99-107); CREATININE 1.59 MG/DL (0.40-0.90); GLUCOSE 69 MG/DL (70-104); POTASSIUM 4.6 MMOL/L (3.5-5.1); SODIUM 141 MMOL/L (135-145); TOTAL CARBON DIOXIDE 19.8 MMOL/L (24-32); TOTAL PROTEIN 5.7 G/DL (6.4-8.2); eGFR 34 ML/MIN
[2021-10-01 08:49] LABS: ANISOCYTOSIS 1+; PLATELET ESTIMATE DECREASED; POIKILOCYTOSIS FEW; POLYCHROMASIA FEW; TARGET CELLS 1+
[2021-10-01] MEDS ORDERED: SUMAtriptan 25 MG tablet PO PRN (09:40)
[2021-10-01] MEDS: docusate sod 100mg capsule PO SCH (09:40)
[2021-10-01 10:00] VITALS: BP 100/53
[2021-10-01] MEDS ORDERED: LEVO500T90 PO (12:07)
[2021-10-01] MEDS ORDERED: FURO40TA4 PO (12:07)
[2021-10-01] MEDS ORDERED: lactulose 20gm/30ml cup PO SCH (13:00)
[2021-10-01] MEDS ORDERED: busPIRone 5mg tablet PO SCH (13:00)
[2021-10-01] MEDS ORDERED: gabapentin 300mg capsule PO SCH ×2 (13:00→13:59)
[2021-10-01] MEDS ORDERED: propranolol LA 60 MG cap.SA.24H PO SCH (20:00)
[2021-10-02] MEDS ORDERED: levoTHYROXINE 25mcg tablet PO SCH (07:00)
[2021-10-02] MEDS ORDERED: levoTHYROXINE 112mcg tablet PO SCH (07:00)
[2021-10-02] MEDS ORDERED: buPROPion SR 150mg tablet PO SCH (08:00)
[2021-10-02] MEDS ORDERED: spironolactone 50 MG tablet PO SCH (08:00)
[2021-10-02] MEDS ORDERED: non-formulary drug (Levothyroxine Sodium 1 TAB) PO SCH (08:00)
[2021-10-02] MEDS ORDERED: folic acid 1mg tablet PO SCH (08:00)
[2021-10-02] MEDS ORDERED: pantoprazole 40mg Tablet.DR PO SCH (08:00)
== END 2021-10-01 14:30 | disposition home health service (06) | DRG 442 ==
LOC: ER 11:50 → ED HOLD 17:03 → ORTHO 4S 17:47
PROVIDERS: ADMIT Internal Medicine; ATTEND Internal Medicine
PROC: 0W993ZX Drainage of Right Pleural Cavity, Percutaneous Approach, Diagnostic (ICD-10-PCS; principal; 2021-09-30)
DX: K72.90 Hepatic failure, unspecified without coma (principal); J90 Pleural effusion, not elsewhere classified; N17.9 Acute kidney failure, unspecified; N39.0 Urinary tract infection, site not specified; K74.60 Unspecified cirrhosis of liver; F32.A Depression, unspecified; D69.6 Thrombocytopenia, unspecified; E88.09 Other disorders of plasma-protein metabolism, not elsewhere classified; F41.9 Anxiety disorder, unspecified; D53.9 Nutritional anemia, unspecified; E03.9 Hypothyroidism, unspecified; F17.210 Nicotine dependence, cigarettes, uncomplicated; K70.9 Alcoholic liver disease, unspecified; Z79.899 Other long term (current) drug therapy; Z88.8 Allergy status to other drugs, medicaments and biological substances; Z90.49 Acquired absence of other specified parts of digestive tract
CPT/HCPCS: 32555; 36415; 71045; 71250; 80053; 80305; 80320; 81001; 82140; 82945; 83605; 83615; 83986; 84145; 84157; 85008; 85025; 85610; 87040; 87070; 87077; 87081; 87088; 87186; 89051; 93005; 96365; 96372; 99285; G0378; J1630; J1956; J3490; J7030

== ENCOUNTER 2021-12-03 19:45 | Inpatient (IN) | payer BC ==
[~2021-12-03] VITALS: Ht 167.6 cm; Wt 69.0 kg
[~2021-12-03 19:45] MED LIST changes: -ACAM333T8 PO; +BUPR-230 PO; +FOLI1TAB27 PO; +FURO40TA4 PO; +GABA300C PO; +OMEP40CA21 PO; +ONDA4TAB12 PO; -ONDA4TAB6 PO; +SPIR50TA5 PO; +SUMA100T16 PO
--- NOTE | 2021-12-03 19:56 | NUR ---
CHARGE NURSE IMMEDIATELY MADE AWARE OF PT CONDITION, RT PAGED AD MADE AWARE
[2021-12-03] MEDS ORDERED: methylPREDNISolone sod succ 125mg/2ml vial IV ONE (20:00)
[2021-12-03] MEDS ORDERED: albuterol 2.5 MG/3 ML nebule CONTNEB PRN (20:00)
[2021-12-03 20:25] LABS: ABG BASE EXCESS -8.7 mmol/L (-2.0-2.0); ABG HCO3 16.6 mmol/L (22.0-26.0); ABG OXYGEN SATURATION 96.6 % (94-97); ABG PO2 (T) 87.9 mmHg (75.0-100.0); ALLEN'S TEST POSITIVE; FCOHb 1.3 % (0.0-3.9); FLOW 10 L/min; FMetHb 0.1 % (0.0-1.5); FO2Hb 95.2 % (94-97); PATIENT TEMPERATURE 36.4; TOTAL HEMOGLOBIN 12.8 G/dl (12.0-16.0)
[2021-12-03] MEDS ORDERED: albuterol 2.5 MG/3 ML nebule NEB ONE (22:05)
[2021-12-03 22:19] LABS: BASOPHILS # (AUTO) 0.1 X10'3 (0-0.2); BASOPHILS % (AUTO) 0.8 % (0-1); EOSINOPHILS # (AUTO) 0.2 X10'3 (0-0.9); EOSINOPHILS % (AUTO) 1.4 % (0-6); HEMATOCRIT 36.8 % (35.0-45.0); HEMOGLOBIN 12.1 g/dl (12.0-16.0); LYMPHOCYTES # (AUTO) 0.8 X10'3 (1.1-4.8); LYMPHOCYTES % (AUTO) 5.2 % (21-51); MEAN CORPUSCULAR HEMOGLOBIN 31.8 PG (27.0-31.0); MEAN CORPUSCULAR HGB CONC 32.8 g/dL (33.0-36.5); MEAN CORPUSCULAR VOLUME 96.9 FL (78-98); MEAN PLATELET VOLUME 9.2 FL (7.4-10.4); MONOCYTES # (AUTO) 0.7 X10'3 (0-0.9); MONOCYTES % (AUTO) 4.5 % (2-12); NEUTROPHILS % (AUTO) 88.1 % (42-75); PLATELET COUNT 135 X10'3 (140-440); RED CELL DISTRIBUTION WIDTH 17.5 % (11.5-14.5); WHITE BLOOD COUNT 14.7 X10'3 (4.5-11.0)
[2021-12-03 22:37] LABS: ALANINE AMINOTRANSFERASE 12 U/L (12-78); ALBUMIN 2.1 G/DL (3.4-5.0); ALBUMIN/GLOBULIN RATIO 0.4 (1.1-1.5); ALKALINE PHOSPHATASE 159 IU/L (46-116); ANION GAP 11 (8-16); ASPARTATE AMINO TRANSFERASE 42 U/L (10-37); BILIRUBIN,TOTAL 3.4 MG/DL (0.1-1.0); BLOOD UREA NITROGEN 10 MG/DL (7-18); BUN/CREATININE RATIO 9.5 (6.6-38.0); CALCIUM 8.6 MG/DL (8.5-10.1); CHLORIDE 100 MMOL/L (99-107); CREATININE 1.05 MG/DL (0.40-0.90); GLUCOSE 106 MG/DL (70-104); SODIUM 129 MMOL/L (135-145); TOTAL CARBON DIOXIDE 17.6 MMOL/L (24-32); eGFR 54 ML/MIN
[2021-12-03 22:49] LABS: POTASSIUM 4.4 MMOL/L (3.5-5.1)
[2021-12-03] MEDS ORDERED: LORazepam 2 mg/ml vial IV ONE (22:55)
[2021-12-03 23:42] LABS: APTT 29 SECONDS (22-32)
[2021-12-04] VITALS (13 sets, daily range): BP systolic 82–109; BP diastolic 48–65
[2021-12-04] MEDS ORDERED: spironolactone 25 MG tablet PO STA (00:08)
[2021-12-04] MEDS ORDERED: furosemide 10 MG/1 ML 10ml inj IV ONE (00:10)
[2021-12-04] MEDS ORDERED: ondansetron/PF 4mg/2ml inj IV ONE (00:55)
[2021-12-04] MEDS ORDERED: acetaminophen 325mg tablet PO PRN ×2 (01:10)
[2021-12-04] MEDS ORDERED: mag hydrox/Alum hydrox/simeth 30ml oral suspension PO PRN (01:10)
[2021-12-04] MEDS ORDERED: magnesium hydroxide 30ml (MOM) UD suspension PO PRN (01:10)
[2021-12-04] MEDS ORDERED: normal saline 1000ml 1,000 ML IV SCH (01:10)
[2021-12-04] MEDS ORDERED: diphenhydrAMINE 50 mg/ml inj IV PRN (01:10)
[2021-12-04] MEDS ORDERED: bisacodyl 10mg suppository rectal RC PRN (01:10)
[2021-12-04] MEDS ORDERED: acetaminophen 650mg rectal suppository RC PRN (01:10)
[2021-12-04] MEDS ORDERED: diphenhydrAMINE 25mg capsule PO PRN (01:10)
[2021-12-04 02:57] LABS: URINE AMPHETAMINE SCREEN NEGATIVE (Neg); URINE BARBITUATE SCREEN NEGATIVE (Neg); URINE BENZODIAZEPINES SCREEN NEGATIVE (Neg); URINE CANNABINOID SCREEN NEGATIVE (Neg); URINE COCAINE SCREEN NEGATIVE (Neg); URINE METHADONE SCREEN NEGATIVE (Neg); URINE OPIATE SCREEN NEGATIVE (Neg); URINE PHENCYCLIDINE SCREEN NEGATIVE (Neg)
[2021-12-04] MEDS: ipratropium/albuterol 3ml nebule NEB SCH ×6 (02:59→23:12)
[2021-12-04 03:00] LABS: CLARITY,URINE SLIGHTLY CLOUDY (Clear); COLOR,URINE YELLOW (Yellow); GLUCOSE, URINE NEGATIVE (Neg); KETONES,URINE NEGATIVE (Neg); LEUKOCYTE ESTERASE ,URINE TRACE (Neg); NITRITES, URINE NEGATIVE (Neg); OCCULT BLOOD,URINE NEGATIVE (Neg); PROTEIN,URINE NEGATIVE (Neg); UROBILINOGEN,URINE 0.2 E.U/dL (0.2-1.0)
[2021-12-04] MEDS: ondansetron/PF 4mg/2ml inj IV PRN ×2 (03:01→14:04)
[2021-12-04] MEDS: levoFLOXACIN-Levaquin 750MG/D5 150 ML IV SCH (03:08)
[2021-12-04 03:17] LABS: UA COLLECTION TYPE URINAL
[2021-12-04 03:18] LABS: BACTERIA,URINE 2+ /HPF (Neg); RBC,URINE NONE SEEN /HPF (0-2); SQUAMOUS EPITHELIAL CELL,UR FEW /LPF (FEW)
[2021-12-04] MEDS: morphine 2 MG/ML inj. syringe IV PRN ×2 (05:09→14:09)
[2021-12-04 06:12] LABS: HEMOGLOBIN A1C 4.5 % (4.5-6.2)
[2021-12-04 06:25] LABS: CREATINE KINASE 40 U/L (26-192); ETHANOL < 0.010 GM/DL (0.0-0.010); LIPASE < 50 U/L (73-393); MAGNESIUM 1.4 MG/DL (1.5-2.4); PHOSPHORUS 4.7 MG/DL (2.3-4.5)
[2021-12-04 06:56] LABS: OSMOLALITY 272 MOSM/K (280-300)
[2021-12-04] MEDS ORDERED: furosemide 10 MG/1 ML 10ml inj IV SCH (08:00)
[2021-12-04] MEDS: docusate sod 100mg capsule PO SCH ×2 (08:40→19:37)
[2021-12-04] MEDS: pantoprazole 40mg Tablet.DR PO SCH (08:40)
[2021-12-04] MEDS ORDERED: magnesium 4gm in 100ml NS 100 ML IV PRN (09:30)
[2021-12-04] MEDS ORDERED: magnesium Cl slow-release 64mg tablet PO PRN (09:30)
[2021-12-04] MEDS ORDERED: magnesium 2GM in 50ml NS 50 ML IV PRN (09:30)
[2021-12-04] MEDS ORDERED: POTASSIUM BICARB 20meq eff tab 20 MEQ TABLET.EFF PO PRN (09:30)
[2021-12-04] MEDS ORDERED: potassium CL 10mEq/100ml bag 100 ML IV PRN (09:30)
[2021-12-04] MEDS ORDERED: ipratropium/albuterol 3ml nebule NEB PRN (09:40)
[2021-12-04] MEDS: methylPREDNISolone sod succ 125mg/2ml vial IV SCH ×2 (10:00→16:43)
[2021-12-04] MEDS ORDERED: levoFLOXACIN 750MG TABLET PO SCH (11:00)
[2021-12-04] MEDS: vancomycin/NS 1 GM ADD-VANTAGE 250 ML IV SCH ×2 (11:59→22:43)
[2021-12-04] MEDS: ondansetron 4mg rapidly disintigrating tab PO PRN (12:09)
--- NOTE | 2021-12-04 12:30 | NUR ---
Patient transferred to ICU for higher level of care and drainage of large pleural effusion which is causing increasing sob. Dr Calzada talked to Corporate Director Of Human Resources who agreed to do the drainage in the ICU. Pt on high flow tower and has intermittent anxiety. Anxiety and movement cause 02 saturation to decrease into mid 80's.
[2021-12-04] MEDS: HYDROcodone/acetaminophen 5mg/325mg tablet PO PRN ×2 (14:47→19:35)
[2021-12-04] MEDS: piperacillin/tazo 3.375gm/50ml 50 ML IV SCH (16:00)
[2021-12-04 17:00] LABS: ABG BASE EXCESS -8.4 mmol/L (-2.0-2.0); ABG HCO3 16.8 mmol/L (22.0-26.0); ABG OXYGEN SATURATION 99.4 % (94-97); ABG PCO2 (T) 32.3 mmHg (32.0-45.0); ABG PO2 (T) 190.6 mmHg (75.0-100.0); ALLEN'S TEST POSITIVE; FLOW 30 L/min; FMetHb 0.4 % (0.0-1.5); PATIENT TEMPERATURE 36.1; TOTAL HEMOGLOBIN 12.3 G/dl (12.0-16.0)
[2021-12-04] MEDS: K and/or MAG REPLACEMENT MC SCH (19:21)
[2021-12-04] MEDS: furosemide 10 MG/1 ML 10ml inj IV SCH (19:34)
[2021-12-04] MEDS ORDERED: FURO40TA4 PO (19:36)
[2021-12-04 20:42] LABS: MAGNESIUM 1.4 MG/DL (1.5-2.4)
[2021-12-04] MEDS ORDERED: temazepam 15mg capsule PO PRN (21:00)
[2021-12-04 21:16] LABS: POTASSIUM 4.3 MMOL/L (3.5-5.1)
[2021-12-05] VITALS (22 sets, daily range): BP systolic 67–113; BP diastolic 38–77
[2021-12-05] MEDS ORDERED: NORepinephrine 8mg/ 250ml NS 250 ML IV PRN (00:30)
[2021-12-05] MEDS ORDERED: normal saline 1000ml 1,000 ML IVB ONE (00:30)
[2021-12-05] MEDS: piperacillin/tazo 3.375gm/50ml 50 ML IV SCH ×4 (00:52→23:34)
[2021-12-05] MEDS: methylPREDNISolone sod succ 125mg/2ml vial IV SCH ×4 (00:52→23:35)
[2021-12-05] MEDS: levoFLOXACIN-Levaquin 750MG/D5 150 ML IV SCH ×2 (03:12→07:16)
[2021-12-05] MEDS: HYDROcodone/acetaminophen 5mg/325mg tablet PO PRN (03:12)
[2021-12-05] MEDS: ipratropium/albuterol 3ml nebule NEB SCH ×6 (03:23→23:47)
[2021-12-05 06:47] LABS: ALANINE AMINOTRANSFERASE 10 U/L (12-78); ALBUMIN 1.5 G/DL (3.4-5.0); ALBUMIN/GLOBULIN RATIO 0.4 (1.1-1.5); ALKALINE PHOSPHATASE 103 IU/L (46-116); ANION GAP 10 (8-16); ASPARTATE AMINO TRANSFERASE 31 U/L (10-37); BASOPHILS % (AUTO) 0.4 % (0-1); BILIRUBIN,TOTAL 1.8 MG/DL (0.1-1.0); BLOOD UREA NITROGEN 26 MG/DL (7-18); BUN/CREATININE RATIO 18.6 (6.6-38.0); CALCIUM 7.8 MG/DL (8.5-10.1); CHLORIDE 103 MMOL/L (99-107); CHOL/HDL RATIO 4.1 (0.00-4.99); CHOLESTEROL 118 MG/DL (0-200); EOSINOPHILS % (AUTO) 0 % (0-6); GLUCOSE 112 MG/DL (70-104); HDL CHOLESTEROL 29 MG/DL (35-60); HEMATOCRIT 32.2 % (35.0-45.0); HEMOGLOBIN 10.6 g/dl (12.0-16.0); LDL CHOLESTEROL 62 MG/DL (50-100); MAGNESIUM 1.5 MG/DL (1.5-2.4); MEAN CORPUSCULAR HEMOGLOBIN 31.8 PG (27.0-31.0); MEAN CORPUSCULAR VOLUME 96.5 FL (78-98); MEAN PLATELET VOLUME 9.2 FL (7.4-10.4); MONOCYTES # (AUTO) 0.5 X10'3 (0-0.9); MONOCYTES % (AUTO) 4.1 % (2-12); NEUTROPHILS # (AUTO) 11.4 X10'3 (1.8-7.7); NEUTROPHILS % (AUTO) 87.5 % (42-75); PHOSPHORUS 4.5 MG/DL (2.3-4.5); PLATELET COUNT 163 X10'3 (140-440); POTASSIUM 4.4 MMOL/L (3.5-5.1); RED BLOOD COUNT 3.34 X10'6 (4.20-5.60); RED CELL DISTRIBUTION WIDTH 17.5 % (11.5-14.5); SODIUM 132 MMOL/L (135-145); TOTAL CARBON DIOXIDE 18.9 MMOL/L (24-32); TOTAL PROTEIN 5.5 G/DL (6.4-8.2); TRIGLYCERIDES 61 MG/DL (20-135); eGFR 39 ML/MIN
--- NOTE | 2021-12-05 06:53 | NUR ---
Patient in room CICU 2010. I have received report from Gaurav DANIELLE and had the opportunity to ask questions and assume patient care.
[2021-12-05] MEDS: docusate sod 100mg capsule PO SCH ×2 (07:17→20:00)
[2021-12-05] MEDS: pantoprazole 40mg Tablet.DR PO SCH (07:17)
[2021-12-05] MEDS: furosemide 10 MG/1 ML 10ml inj IV SCH ×2 (07:17→20:50)
[2021-12-05] MEDS: K and/or MAG REPLACEMENT MC SCH ×2 (08:00→20:00)
[2021-12-05] MEDS: vancomycin/NS 1 GM ADD-VANTAGE 250 ML IV SCH ×2 (11:00→23:00)
[2021-12-05] MEDS ORDERED: ondansetron 4mg rapidly disintigrating tab PO PRN (12:15)
[2021-12-05] MEDS: gabapentin 300mg capsule PO SCH ×2 (13:49→20:50)
[2021-12-05] MEDS: busPIRone 5mg tablet PO SCH ×2 (13:49→20:50)
[2021-12-05] MEDS: lactulose 20gm/30ml cup PO SCH ×3 (13:49→20:49)
[2021-12-05] MEDS: ondansetron 4mg rapidly disintigrating tab PO PRN (18:31)
--- NOTE | 2021-12-05 19:09 | NUR ---
Received report from LOLIS Barrios. Awaiting patient arrival to the floor.
--- NOTE | 2021-12-05 19:23 | NUR ---
Pt transferred to PCU room 3013B. Report was called to kyle DANIELLE prior with all questions asked. Transferred with all belongings, chart, meds in a wheelchair; no issues in transfer. Put pt in bed, took vitals, continued IV ABX and let charge entry specialist know pt was in bed, could not find primary RN. Pt very pleasant and in no distress upon my leaving.
[2021-12-05] MEDS: heparin, porcine 5000 units/ml vial SQ SCH (20:48)
[2021-12-05] MEDS: propranolol LA 60 MG cap.SA.24H PO SCH (20:51)
[2021-12-05] MEDS ORDERED: VANCOMYCIN LEVEL IV ONE (22:30)
[2021-12-06 02:00] VITALS: BP 88/50
[2021-12-06 02:30] VITALS: BP 101/59
[2021-12-06] MEDS: ipratropium/albuterol 3ml nebule NEB SCH ×6 (02:43→22:32)
[2021-12-06 06:00] VITALS: BP 85/57
--- NOTE | 2021-12-06 06:15 | NUR ---
Patient in room PCU 3013. I have received report and had the opportunity to ask questions and assume patient care.
[2021-12-06 06:21] LABS: BASOPHILS % (AUTO) 0.1 % (0-1); EOSINOPHILS % (AUTO) 0 % (0-6); HEMATOCRIT 29.8 % (35.0-45.0); HEMOGLOBIN 10.1 g/dl (12.0-16.0); LYMPHOCYTES # (AUTO) 0.9 X10'3 (1.1-4.8); LYMPHOCYTES % (AUTO) 7.4 % (21-51); MEAN CORPUSCULAR HEMOGLOBIN 31.9 PG (27.0-31.0); MEAN CORPUSCULAR HGB CONC 33.8 g/dL (33.0-36.5); MEAN CORPUSCULAR VOLUME 94.3 FL (78-98); MONOCYTES # (AUTO) 0.6 X10'3 (0-0.9); MONOCYTES % (AUTO) 4.5 % (2-12); NEUTROPHILS # (AUTO) 10.8 X10'3 (1.8-7.7); PLATELET COUNT 147 X10'3 (140-440); RED BLOOD COUNT 3.15 X10'6 (4.20-5.60); RED CELL DISTRIBUTION WIDTH 17.1 % (11.5-14.5); WHITE BLOOD COUNT 12.3 X10'3 (4.5-11.0)
[2021-12-06 06:36] LABS: ALANINE AMINOTRANSFERASE 15 U/L (12-78); ALBUMIN 1.6 G/DL (3.4-5.0); ALBUMIN/GLOBULIN RATIO 0.4 (1.1-1.5); ALKALINE PHOSPHATASE 95 IU/L (46-116); ANION GAP 10 (8-16); ASPARTATE AMINO TRANSFERASE 40 U/L (10-37); BILIRUBIN,TOTAL 1.5 MG/DL (0.1-1.0); BLOOD UREA NITROGEN 31 MG/DL (7-18); BUN/CREATININE RATIO 17.9 (6.6-38.0); CALCIUM 8.3 MG/DL (8.5-10.1); CHLORIDE 107 MMOL/L (99-107); CREATININE 1.73 MG/DL (0.40-0.90); GLUCOSE 119 MG/DL (70-104); MAGNESIUM 1.6 MG/DL (1.5-2.4); PHOSPHORUS 3.4 MG/DL (2.3-4.5); POTASSIUM 3.3 MMOL/L (3.5-5.1); SODIUM 137 MMOL/L (135-145); TOTAL CARBON DIOXIDE 19.9 MMOL/L (24-32); TOTAL PROTEIN 5.3 G/DL (6.4-8.2); eGFR 31 ML/MIN
--- NOTE | 2021-12-06 06:36 | NUR ---
Problems reprioritized. Patient report given, questions answered & plan of care reviewed with LOLIS Mata.
[2021-12-06] MEDS: methylPREDNISolone sod succ 125mg/2ml vial IV SCH ×2 (07:55→16:14)
[2021-12-06] MEDS: heparin, porcine 5000 units/ml vial SQ SCH ×2 (07:57→21:16)
[2021-12-06] MEDS: lactulose 20gm/30ml cup PO SCH ×4 (07:57→21:25)
[2021-12-06] MEDS: furosemide 10 MG/1 ML 10ml inj IV SCH ×2 (07:59→21:16)
[2021-12-06] MEDS: levoTHYROXINE 25mcg tablet PO SCH (07:59)
[2021-12-06] MEDS: multivitamins, therapeutics tablet PO SCH (07:59)
[2021-12-06] MEDS: levoTHYROXINE 125mcg tablet PO SCH (07:59)
[2021-12-06] MEDS: gabapentin 300mg capsule PO SCH ×3 (07:59→21:13)
[2021-12-06] MEDS: pantoprazole 40mg Tablet.DR PO SCH (07:59)
[2021-12-06] MEDS ORDERED: non-formulary drug (Omeprazole (Prilosec) 1 CAP) PO SCH (08:00)
[2021-12-06] MEDS: busPIRone 5mg tablet PO SCH ×3 (08:00→21:15)
[2021-12-06] MEDS: docusate sod 100mg capsule PO SCH ×2 (08:00→21:26)
[2021-12-06] MEDS: propranolol LA 60 MG cap.SA.24H PO SCH ×2 (08:01→21:14)
[2021-12-06] MEDS: spironolactone 50 MG tablet PO SCH (08:02)
[2021-12-06] MEDS: piperacillin/tazo 3.375gm/50ml 50 ML IV SCH ×2 (08:07→16:14)
[2021-12-06] MEDS: K and/or MAG REPLACEMENT MC SCH ×2 (08:11→20:00)
[2021-12-06] MEDS: POTASSIUM BICARB 20meq eff tab 20 MEQ TABLET.EFF PO PRN (08:18)
[2021-12-06 08:39] LABS: AFP,SERUM, TUMOR MARKER 2.8 ng/mL (0.0-9.2); CA 27.29 53.1 U/mL (0.0-38.6); CARBOHYDRATE ANTIGEN 19-9 <2 U/mL (0-35); CARCINOEMBRYONIC ANTIGEN 21.4 ng/mL (0.0-4.7)
[2021-12-06] MEDS ORDERED: VANCOMYCIN LEVEL IV ONE (10:30)
[2021-12-06 11:00] VITALS: BP 98/64
[2021-12-06] MEDS: VANCOMYCIN 750MG IV in NS 250 ML IV SCH (14:30)
[2021-12-06 15:00] VITALS: BP 102/63
[2021-12-06 18:00] VITALS: BP 101/68
--- NOTE | 2021-12-06 18:35 | NUR ---
Patient in room PCU 3013. I have received report from AIDEN DANIELLE and had the opportunity to ask questions and assume patient care.
[2021-12-06] MEDS: HYDROcodone/acetaminophen 5mg/325mg tablet PO PRN (21:14)
[2021-12-07] MEDS: methylPREDNISolone sod succ 125mg/2ml vial IV SCH ×3 (00:20→16:34)
[2021-12-07] MEDS: piperacillin/tazo 3.375gm/50ml 50 ML IV SCH ×3 (00:28→16:34)
[2021-12-07] MEDS: POTASSIUM BICARB 20meq eff tab 20 MEQ TABLET.EFF PO PRN ×2 (00:29→09:01)
[2021-12-07 02:00] VITALS: BP 101/69
[2021-12-07] MEDS: VANCOMYCIN 750MG IV in NS 250 ML IV SCH (02:15)
[2021-12-07] MEDS: ipratropium/albuterol 3ml nebule NEB SCH ×6 (02:29→23:00)
[2021-12-07 06:00] VITALS: BP 108/72
[2021-12-07 06:22] LABS: BASOPHILS % (AUTO) 0.1 % (0-1); EOSINOPHILS % (AUTO) 0 % (0-6); HEMATOCRIT 33.2 % (35.0-45.0); HEMOGLOBIN 11.1 g/dl (12.0-16.0); LYMPHOCYTES # (AUTO) 1.3 X10'3 (1.1-4.8); LYMPHOCYTES % (AUTO) 8.8 % (21-51); MEAN CORPUSCULAR HEMOGLOBIN 31.4 PG (27.0-31.0); MEAN CORPUSCULAR HGB CONC 33.5 g/dL (33.0-36.5); MEAN CORPUSCULAR VOLUME 93.8 FL (78-98); MONOCYTES # (AUTO) 0.8 X10'3 (0-0.9); MONOCYTES % (AUTO) 5.7 % (2-12); NEUTROPHILS # (AUTO) 12.6 X10'3 (1.8-7.7); NEUTROPHILS % (AUTO) 85.4 % (42-75); PLATELET COUNT 170 X10'3 (140-440); RED BLOOD COUNT 3.54 X10'6 (4.20-5.60); RED CELL DISTRIBUTION WIDTH 17.1 % (11.5-14.5); WHITE BLOOD COUNT 14.8 X10'3 (4.5-11.0)
--- NOTE | 2021-12-07 06:35 | NUR ---
Problems reprioritized. Patient report given, questions answered & plan of care reviewed with AIDEN DANIELLE.
[2021-12-07 06:39] LABS: ALANINE AMINOTRANSFERASE 29 U/L (12-78); ALBUMIN 1.8 G/DL (3.4-5.0); ALBUMIN/GLOBULIN RATIO 0.4 (1.1-1.5); ALKALINE PHOSPHATASE 103 IU/L (46-116); ANION GAP 13 (8-16); ASPARTATE AMINO TRANSFERASE 49 U/L (10-37); BILIRUBIN,TOTAL 1.6 MG/DL (0.1-1.0); BLOOD UREA NITROGEN 34 MG/DL (7-18); CALCIUM 8.4 MG/DL (8.5-10.1); CHLORIDE 105 MMOL/L (99-107); GLUCOSE 122 MG/DL (70-104); MAGNESIUM 1.7 MG/DL (1.5-2.4); PHOSPHORUS 3.3 MG/DL (2.3-4.5); POTASSIUM 3.4 MMOL/L (3.5-5.1); SODIUM 139 MMOL/L (135-145); TOTAL CARBON DIOXIDE 20.6 MMOL/L (24-32); eGFR 31 ML/MIN
--- NOTE | 2021-12-07 06:39 | NUR ---
Patient in room PCU 3013. I have received report from JAIR ADAM RN and had the opportunity to ask questions and assume patient care.
[2021-12-07] MEDS: levoTHYROXINE 25mcg tablet PO SCH (07:59)
[2021-12-07] MEDS: busPIRone 5mg tablet PO SCH ×3 (08:00→20:35)
[2021-12-07] MEDS: levoTHYROXINE 125mcg tablet PO SCH (08:00)
[2021-12-07] MEDS: docusate sod 100mg capsule PO SCH ×2 (08:00→20:00)
[2021-12-07] MEDS: lactulose 20gm/30ml cup PO SCH ×4 (08:00→20:39)
[2021-12-07] MEDS ORDERED: levoFLOXACIN-Levaquin 750MG/D5 150 ML IV SCH (08:00)
[2021-12-07] MEDS: multivitamins, therapeutics tablet PO SCH (08:00)
[2021-12-07] MEDS: gabapentin 300mg capsule PO SCH ×3 (08:00→20:35)
[2021-12-07] MEDS: propranolol LA 60 MG cap.SA.24H PO SCH ×2 (08:00→20:35)
[2021-12-07] MEDS: furosemide 10 MG/1 ML 10ml inj IV SCH ×2 (08:01→20:33)
[2021-12-07] MEDS: spironolactone 50 MG tablet PO SCH (08:01)
[2021-12-07] MEDS: pantoprazole 40mg Tablet.DR PO SCH (08:02)
[2021-12-07] MEDS: heparin, porcine 5000 units/ml vial SQ SCH ×2 (08:02→20:36)
[2021-12-07] MEDS: K and/or MAG REPLACEMENT MC SCH ×2 (09:00→20:00)
[2021-12-07 11:00] VITALS: BP 98/60
[2021-12-07] MEDS: HYDROcodone/acetaminophen 5mg/325mg tablet PO PRN (14:07)
[2021-12-07 15:00] VITALS: BP 96/60
[2021-12-07 18:00] VITALS: BP_SYST 142; BP_SYST 91; BP_DIAS 56; BP_DIAS 68
--- NOTE | 2021-12-07 18:30 | NUR ---
Patient in room PCU 3013. I have received report from AIDEN DANIELLE and had the opportunity to ask questions and assume patient care.
[2021-12-07] MEDS ORDERED: magnesium 2GM in 50ml NS 50 ML IV PRN (21:50)
[2021-12-07] MEDS ORDERED: potassium CL 10mEq/100ml bag 100 ML IV PRN (21:50)
[2021-12-07] MEDS ORDERED: POTASSIUM BICARB 20meq eff tab 20 MEQ TABLET.EFF PO PRN (21:50)
[2021-12-07] MEDS ORDERED: magnesium Cl slow-release 64mg tablet PO PRN (21:50)
[2021-12-07] MEDS ORDERED: magnesium 4gm in 100ml NS 100 ML IV PRN (21:50)
[2021-12-07 22:00] VITALS: BP 99/50
[2021-12-08] MEDS ORDERED: VANCOMYCIN LEVEL IV ONE (00:30)
[2021-12-08] MEDS: piperacillin/tazo 3.375gm/50ml 50 ML IV SCH ×2 (00:41→07:20)
[2021-12-08 02:00] VITALS: BP 104/63
[2021-12-08] MEDS: ipratropium/albuterol 3ml nebule NEB SCH ×3 (04:10→11:46)
[2021-12-08 06:00] VITALS: BP 100/67
--- NOTE | 2021-12-08 06:00 | NUR ---
Patient in room PCU 3013. I have received report from Bryce DANIELLE and had the opportunity to ask questions and assume patient care.
--- NOTE | 2021-12-08 06:26 | NUR ---
Problems reprioritized. Patient report given, questions answered & plan of care reviewed with SUREKHA DANIELLE.
[2021-12-08 06:48] LABS: BASOPHILS % (AUTO) 0.2 % (0-1); EOSINOPHILS % (AUTO) 0.1 % (0-6); HEMATOCRIT 37.4 % (35.0-45.0); HEMOGLOBIN 12.2 g/dl (12.0-16.0); LYMPHOCYTES # (AUTO) 1.3 X10'3 (1.1-4.8); LYMPHOCYTES % (AUTO) 11.6 % (21-51); MEAN CORPUSCULAR HEMOGLOBIN 31.2 PG (27.0-31.0); MEAN CORPUSCULAR HGB CONC 32.6 g/dL (33.0-36.5); MEAN CORPUSCULAR VOLUME 95.7 FL (78-98); MEAN PLATELET VOLUME 8.6 FL (7.4-10.4); MONOCYTES % (AUTO) 8.7 % (2-12); NEUTROPHILS # (AUTO) 9.1 X10'3 (1.8-7.7); NEUTROPHILS % (AUTO) 79.4 % (42-75); PLATELET COUNT 149 X10'3 (140-440); RED BLOOD COUNT 3.91 X10'6 (4.20-5.60); RED CELL DISTRIBUTION WIDTH 17.9 % (11.5-14.5); WHITE BLOOD COUNT 11.5 X10'3 (4.5-11.0)
[2021-12-08] MEDS: levoTHYROXINE 125mcg tablet PO SCH (07:16)
[2021-12-08] MEDS: levoTHYROXINE 25mcg tablet PO SCH (07:17)
[2021-12-08] MEDS: heparin, porcine 5000 units/ml vial SQ SCH (07:18)
[2021-12-08] MEDS: pantoprazole 40mg Tablet.DR PO SCH (07:19)
[2021-12-08] MEDS: furosemide 10 MG/1 ML 10ml inj IV SCH (07:20)
[2021-12-08] MEDS: busPIRone 5mg tablet PO SCH ×2 (07:21→14:06)
[2021-12-08] MEDS: spironolactone 50 MG tablet PO SCH (07:21)
[2021-12-08] MEDS: docusate sod 100mg capsule PO SCH (07:22)
[2021-12-08] MEDS: gabapentin 300mg capsule PO SCH ×2 (07:22→14:06)
[2021-12-08] MEDS: lactulose 20gm/30ml cup PO SCH ×2 (07:22→14:06)
[2021-12-08] MEDS: propranolol LA 60 MG cap.SA.24H PO SCH (07:22)
[2021-12-08 07:23] LABS: ALANINE AMINOTRANSFERASE 35 U/L (12-78); ALBUMIN/GLOBULIN RATIO 0.4 (1.1-1.5); ALKALINE PHOSPHATASE 107 IU/L (46-116); ANION GAP 14 (8-16); ASPARTATE AMINO TRANSFERASE 52 U/L (10-37); BILIRUBIN,TOTAL 1.7 MG/DL (0.1-1.0); BLOOD UREA NITROGEN 33 MG/DL (7-18); BUN/CREATININE RATIO 19.1 (6.6-38.0); CALCIUM 8.6 MG/DL (8.5-10.1); CHLORIDE 102 MMOL/L (99-107); CREATININE 1.73 MG/DL (0.40-0.90); GLUCOSE 119 MG/DL (70-104); MAGNESIUM 1.8 MG/DL (1.5-2.4); PHOSPHORUS 3.2 MG/DL (2.3-4.5); SODIUM 137 MMOL/L (135-145); TOTAL CARBON DIOXIDE 21.3 MMOL/L (24-32); TOTAL PROTEIN 6.5 G/DL (6.4-8.2); eGFR 31 ML/MIN
[2021-12-08 07:45] LABS: POTASSIUM 2.9 MMOL/L (3.5-5.1)
[2021-12-08] MEDS ORDERED: predniSONE 20 mg tablet PO SCH (08:00)
[2021-12-08] MEDS ORDERED: K and/or MAG REPLACEMENT MC SCH (08:00)
[2021-12-08] MEDS: multivitamins, therapeutics tablet PO SCH (08:00)
[2021-12-08] MEDS: POTASSIUM BICARB 20meq eff tab 20 MEQ TABLET.EFF PO PRN ×3 (08:06→14:09)
[2021-12-08 11:00] VITALS: BP 90/66
[2021-12-08] MEDS ORDERED: AMOX-580 PO (12:25)
[2021-12-08] MEDS ORDERED: MULT-25 PO (12:25)
[2021-12-08] MEDS ORDERED: ALBU8.5H17 INH (12:25)
[2021-12-08] MEDS ORDERED: PRED10TA23 PO (12:25)
[2021-12-08] MEDS ORDERED: LACT1CAP26 PO (12:25)
--- NOTE | 2021-12-08 12:40 | NUR ---
Per Dr. Calzada patient is to take their 12 dose of 40mEq of K, redraw K at 1300, then able to discharge
--- NOTE | 2021-12-08 13:48 | NUR ---
Page Sent to Dr. Zheng Moreno 3.2, is she ok to discharge?
--- NOTE | 2021-12-08 14:37 | NUR ---
Per Dr. Calzada final dose of 40mEq of K given, 1300 meds given, patient's IV removed, chest tube dressing changed, discharge instructions given and signed, patient taken outside via wheelchair by aide.
== END 2021-12-08 14:28 | disposition home or self-care (01) | DRG 193 ==
LOC: ER 19:45 → ED HOLD 12-04 01:20 → EDBEDREQ 12-04 04:59 → PCU 3S 12-04 06:56 → CICU 2S 12-04 12:43 → PCU 3S 12-05 19:47
PROVIDERS: ADMIT Family Medicine; ATTEND Family Medicine
PROC: 5A09357 Assistance with Respiratory Ventilation, Less than 24 Consecutive Hours, Continuous Positive Airway Pressure (ICD-10-PCS; 2021-12-03)
PROC: 0W9930Z Drainage of Right Pleural Cavity with Drainage Device, Percutaneous Approach (ICD-10-PCS; principal; 2021-12-04)
PROC: 5A0945A Assistance with Respiratory Ventilation, 24-96 Consecutive Hours, High Flow/Velocity Cannula (ICD-10-PCS; 2021-12-04)
DX: J18.9 Pneumonia, unspecified organism (principal); J96.01 Acute respiratory failure with hypoxia; I50.43 Acute on chronic combined systolic (congestive) and diastolic (congestive) heart failure; K76.6 Portal hypertension; N17.9 Acute kidney failure, unspecified; N39.0 Urinary tract infection, site not specified; E87.1 Hypo-osmolality and hyponatremia; E87.2 Acidosis; J91.8 Pleural effusion in other conditions classified elsewhere; N18.9 Chronic kidney disease, unspecified; D69.59 Other secondary thrombocytopenia; Z20.822 Contact with and (suspected) exposure to COVID-19; F41.9 Anxiety disorder, unspecified; K70.30 Alcoholic cirrhosis of liver without ascites; F10.10 Alcohol abuse, uncomplicated; D63.8 Anemia in other chronic diseases classified elsewhere; E03.9 Hypothyroidism, unspecified; F17.200 Nicotine dependence, unspecified, uncomplicated; F32.A Depression, unspecified; K76.81 Hepatopulmonary syndrome; Z88.8 Allergy status to other drugs, medicaments and biological substances; Z87.440 Personal history of urinary (tract) infections; Z79.899 Other long term (current) drug therapy
CPT/HCPCS: 36415; 36600; 71045; 71250; 80053; 80061; 80202; 80305; 80320; 81001; 82103; 82140; 82378; 82550; 82803; 83036; 83605; 83615; 83690; 83735; 83880; 83930; 84100; 84132; 85018; 85025; 85610; 85730; 86300; 86301; 86304; 87040; 87077; 87088; 87186; 87502; 87503; 87635; 92508; 92616; 93005; 93306; 94640; 94660; 94667; 94668; 94760; 96374; 96375; 97116; 97161; 97530; 99285; A6213; A6222; A6258; A6449; A7015; A7048; C9803; G0378; J1200; J1644; J1940; J1956; J2060; J2270; J2405; J2543; J2930; J3370; J7030; J7050; J7512; Q0163

== ENCOUNTER 2022-02-10 09:18 | Inpatient (IN) | payer BC ==
[~2022-02-10] VITALS: Ht 167.6 cm; Wt 55.9 kg
[~2022-02-10 09:18] MED LIST changes: +ALBU8.5H17 INH; -BUPR-230 PO; -FOLI1TAB27 PO; +LACT1CAP26 PO; +MULT-25 PO; -SUMA100T16 PO
[2022-02-10 10:52] LABS: EOSINOPHILS # (AUTO) 0.2 X10'3 (0-0.9); NEUTROPHILS # (AUTO) 2.1 X10'3 (1.8-7.7); PLATELET COUNT 66 X10'3 (140-440); RED CELL DISTRIBUTION WIDTH 15.6 % (11.5-14.5)
[2022-02-10 10:54] LABS: BASOPHILS % (AUTO) 1.1 % (0-1); EOSINOPHILS % (AUTO) 5.9 % (0-6); HEMATOCRIT 30.4 % (35.0-45.0); LYMPHOCYTES # (AUTO) 1.4 X10'3 (1.1-4.8); LYMPHOCYTES % (AUTO) 33.4 % (21-51); MEAN CORPUSCULAR HEMOGLOBIN 31.9 PG (27.0-31.0); MEAN CORPUSCULAR HGB CONC 33.1 g/dL (33.0-36.5); MEAN CORPUSCULAR VOLUME 96.5 FL (78-98); MONOCYTES # (AUTO) 0.4 X10'3 (0-0.9); NEUTROPHILS % (AUTO) 50.6 % (42-75); RED BLOOD COUNT 3.15 X10'6 (4.20-5.60); WHITE BLOOD COUNT 4.1 X10'3 (4.5-11.0)
[2022-02-10 11:02] LABS: APTT 25 SECONDS (22-32)
[2022-02-10 11:05] LABS: ALANINE AMINOTRANSFERASE 30 U/L (12-78); ALBUMIN 3.3 G/DL (3.4-5.0); ALBUMIN/GLOBULIN RATIO 0.8 (1.1-1.5); ALKALINE PHOSPHATASE 137 IU/L (46-116); ANION GAP 11 (8-16); BILIRUBIN,TOTAL 1.7 MG/DL (0.1-1.0); BLOOD UREA NITROGEN 13 MG/DL (7-18); BUN/CREATININE RATIO 15.7 (6.6-38.0); CALCIUM 8.7 MG/DL (8.5-10.1); CHLORIDE 103 MMOL/L (99-107); CREATININE 0.83 MG/DL (0.40-0.90); GLUCOSE 99 MG/DL (70-104); POTASSIUM 4.9 MMOL/L (3.5-5.1); SODIUM 137 MMOL/L (135-145); TOTAL CARBON DIOXIDE 23.4 MMOL/L (24-32); TOTAL PROTEIN 7.3 G/DL (6.4-8.2); eGFR 71 ML/MIN
[2022-02-10 11:06] LABS: ASPARTATE AMINO TRANSFERASE 63 U/L (10-37)
[2022-02-10] MEDS ORDERED: ondansetron/PF 4mg/2ml inj IV PRN (13:25)
[2022-02-10] MEDS ORDERED: POTASSIUM BICARB 20meq eff tab 20 MEQ TABLET.EFF PO PRN ×2 (13:25)
[2022-02-10] MEDS ORDERED: acetaminophen 325mg tablet PO PRN ×2 (13:25)
[2022-02-10] MEDS ORDERED: magnesium 2GM in 50ml NS 50 ML IV PRN (13:25)
[2022-02-10] MEDS ORDERED: normal saline 1000ml 1,000 ML IV SCH (13:25)
[2022-02-10] MEDS ORDERED: magnesium 4gm in 100ml NS 100 ML IV PRN (13:25)
[2022-02-10] MEDS ORDERED: magnesium Cl slow-release 64mg tablet PO PRN (13:25)
[2022-02-10] MEDS ORDERED: potassium CL 10mEq/100ml bag 100 ML IV PRN (13:25)
--- NOTE | 2022-02-10 15:33 | NUR ---
Patient in room ORTHO 4023. I have received report from Elsy and had the opportunity to ask questions and assume patient care. Pt arrived to the floor prior to being able to obtain report.
[2022-02-10 16:00] VITALS: BP 129/91
[2022-02-10] MEDS ORDERED: PANT40TA54 PO (17:09)
[2022-02-10] MEDS ORDERED: LACT10SO3 PO (17:09)
[2022-02-10] MEDS ORDERED: RIFA550T PO (17:17)
[2022-02-10] MEDS ORDERED: SULF1TAB45 PO (17:17)
[2022-02-10] MEDS ORDERED: PROC10TA10 PO (17:17)
[2022-02-10] MEDS ORDERED: FLO110IN INH (17:17)
[2022-02-10] MEDS ORDERED: MONT-40 PO (17:17)
[2022-02-10] MEDS ORDERED: ONDA-103 PO (17:17)
[2022-02-10] MEDS ORDERED: MIDO5TAB4 PO (17:17)
[2022-02-10] MEDS ORDERED: LEVO125T8 PO (17:17)
[2022-02-10] MEDS ORDERED: MAGN400T56 PO (17:17)
[2022-02-10] MEDS ORDERED: SPIR100T5 PO (17:19)
[2022-02-10] MEDS ORDERED: proCHLORperazine 10mg tablet PO PRN (17:45)
[2022-02-10] MEDS ORDERED: ondansetron 4mg rapidly disintigrating tab PO PRN (17:45)
[2022-02-10 18:00] VITALS: BP 108/70
--- NOTE | 2022-02-10 18:05 | NUR ---
Problems reprioritized. Patient report given, questions answered & plan of care reviewed with Tash.
--- NOTE | 2022-02-10 18:15 | NUR ---
Patient in room ORTHO 4023. I have received report from LOLIS Alfaro and had the opportunity to ask questions and assume patient care.
[2022-02-10 20:00] VITALS: BP 104/60
[2022-02-10] MEDS ORDERED: heparin, porcine 5000 units/ml vial SQ SCH (20:00)
[2022-02-10] MEDS: K and/or MAG REPLACEMENT MC SCH (20:00)
[2022-02-10] MEDS: lactulose 20gm/30ml cup PO SCH (20:26)
[2022-02-10] MEDS: sulfamethoxazole/trimethoprim DS (800/160mg) tablet PO SCH (20:29)
[2022-02-10] MEDS: midodrine 5mg tablet PO SCH (20:30)
[2022-02-10] MEDS: rifaximin 550mg tablet PO SCH (20:31)
[2022-02-10 20:32] VITALS: BP 107/62
[2022-02-10] MEDS ORDERED: Melatonin 3mg tablet PO PRN (21:00)
[2022-02-10] MEDS: budesonide 0.5mg/2ml UD nebule IH SCH (21:00)
[2022-02-10 22:00] VITALS: BP 96/47
[2022-02-11] VITALS: BP 100/50
[2022-02-11] MEDS ORDERED: lactulose 20gm/30ml cup PO ONE (00:30)
[2022-02-11 02:00] VITALS: BP 100/61
[2022-02-11 04:00] VITALS: BP 110/60
[2022-02-11 06:00] VITALS: BP 98/58
--- NOTE | 2022-02-11 06:29 | NUR ---
Problems reprioritized. Patient report given, questions answered & plan of care reviewed with LOLIS Lloyd.
[2022-02-11 06:32] LABS: BASOPHILS # (AUTO) 0.1 X10'3 (0-0.2); BASOPHILS % (AUTO) 1.7 % (0-1); EOSINOPHILS # (AUTO) 0.3 X10'3 (0-0.9); EOSINOPHILS % (AUTO) 5.9 % (0-6); HEMATOCRIT 25.5 % (35.0-45.0); HEMOGLOBIN 8.6 g/dl (12.0-16.0); LYMPHOCYTES # (AUTO) 1.4 X10'3 (1.1-4.8); LYMPHOCYTES % (AUTO) 33.2 % (21-51); MEAN CORPUSCULAR HEMOGLOBIN 32.3 PG (27.0-31.0); MEAN CORPUSCULAR HGB CONC 33.8 g/dL (33.0-36.5); MEAN CORPUSCULAR VOLUME 95.7 FL (78-98); MEAN PLATELET VOLUME 9.9 FL (7.4-10.4); MONOCYTES # (AUTO) 0.5 X10'3 (0-0.9); MONOCYTES % (AUTO) 11.9 % (2-12); NEUTROPHILS # (AUTO) 2.1 X10'3 (1.8-7.7); NEUTROPHILS % (AUTO) 47.3 % (42-75); PLATELET COUNT 85 X10'3 (140-440); RED BLOOD COUNT 2.67 X10'6 (4.20-5.60); RED CELL DISTRIBUTION WIDTH 15.5 % (11.5-14.5); WHITE BLOOD COUNT 4.4 X10'3 (4.5-11.0)
[2022-02-11 06:39] LABS: ALANINE AMINOTRANSFERASE 23 U/L (12-78); ALBUMIN 2.7 G/DL (3.4-5.0); ALBUMIN/GLOBULIN RATIO 0.7 (1.1-1.5); ALKALINE PHOSPHATASE 120 IU/L (46-116); ANION GAP 12 (8-16); ASPARTATE AMINO TRANSFERASE 50 U/L (10-37); BILIRUBIN,TOTAL 1.2 MG/DL (0.1-1.0); BLOOD UREA NITROGEN 10 MG/DL (7-18); BUN/CREATININE RATIO 11.1 (6.6-38.0); CALCIUM 8.9 MG/DL (8.5-10.1); CHLORIDE 108 MMOL/L (99-107); GLUCOSE 92 MG/DL (70-104); POTASSIUM 4.4 MMOL/L (3.5-5.1); SODIUM 140 MMOL/L (135-145); TOTAL CARBON DIOXIDE 20.2 MMOL/L (24-32); TOTAL PROTEIN 6.6 G/DL (6.4-8.2); eGFR 65 ML/MIN
--- NOTE | 2022-02-11 06:43 | NUR ---
Patient in room ORTHO 4023. I have received report from LOLIS Boone and had the opportunity to ask questions and assume patient care.
[2022-02-11] MEDS: K and/or MAG REPLACEMENT MC SCH (08:00)
[2022-02-11] MEDS ORDERED: levoTHYROXINE 125mcg tablet PO SCH (08:00)
[2022-02-11] MEDS ORDERED: magnesium oxide 400mg tablet PO SCH (08:00)
[2022-02-11] MEDS ORDERED: montelukast 10mg tablet PO SCH (08:00)
[2022-02-11] MEDS ORDERED: spironolactone 25 MG tablet PO SCH (08:00)
[2022-02-11] MEDS ORDERED: pantoprazole 40mg Tablet.DR PO SCH (08:00)
--- NOTE | 2022-02-11 08:00 | NUR ---
Pt IV pulled out when getting up to bathroom. Pt refusing to have new IV placed. Will notify hospitalist.
[2022-02-11] MEDS: budesonide 0.5mg/2ml UD nebule IH SCH (08:11)
[2022-02-11] MEDS: lactulose 20gm/30ml cup PO SCH (08:25)
[2022-02-11] MEDS: midodrine 5mg tablet PO SCH (08:25)
[2022-02-11] MEDS: sulfamethoxazole/trimethoprim DS (800/160mg) tablet PO SCH (08:26)
[2022-02-11] MEDS: rifaximin 550mg tablet PO SCH (08:26)
[2022-02-11 10:00] VITALS: BP 105/62
--- NOTE | 2022-02-11 12:09 | NUR ---
Pt discharged to home, at 1150, with all belongings, in private vehicle accompanied by . Discharge instructions and medications reviewed. No new prescriptions ordered. Pt instructed to follow up with PCP in 1-2 weeks and to return to ED for any new or worsening symptoms. Pt states understanding and willingness to comply with all discharge instructions. Pt escorted to front lobby via wheelchair by ESHA.
== END 2022-02-11 11:50 | disposition home or self-care (01) | DRG 93 ==
LOC: ER 09:19 → ED HOLD 13:26 → ORTHO 4S 15:00
PROVIDERS: ADMIT Internal Medicine; ATTEND Internal Medicine
DX: R47.81 Slurred speech (principal); E03.9 Hypothyroidism, unspecified; R47.1 Dysarthria and anarthria; F41.9 Anxiety disorder, unspecified; K11.7 Disturbances of salivary secretion; K74.60 Unspecified cirrhosis of liver; F17.210 Nicotine dependence, cigarettes, uncomplicated; Z76.82 Awaiting organ transplant status; Z88.8 Allergy status to other drugs, medicaments and biological substances; Z79.899 Other long term (current) drug therapy
CPT/HCPCS: 36415; 70450; 70551; 71045; 80053; 82140; 84484; 85025; 85610; 85730; 93306; 93880; 94760; 97116; 97161; 97530; 99285; G0378; J7030

== ENCOUNTER 2022-05-03 13:52 | Inpatient (IN) | payer BC ==
[~2022-05-03] VITALS: Ht 167.6 cm; Wt 57.7 kg
[~2022-05-03 13:52] MED LIST changes: -ALBU8.5H17 INH; -BUSP5TAB3 PO; +FLO110IN INH; -FURO40TA4 PO; -GABA300C PO; -INDLA60C PO; -LACT1CAP26 PO; +LEVO125T8 PO; -LEVO137T2 PO; +MAGN400T56 PO; +MIDO5TAB4 PO; +MONT-40 PO; -MULT-25 PO; -OMEP40CA21 PO; +ONDA-103 PO; -ONDA4TAB12 PO; +PANT40TA54 PO; +PROC10TA10 PO; +RIFA550T PO; +SPIR100T5 PO; -SPIR50TA5 PO; +SULF1TAB45 PO
[2022-05-03 14:34] LABS: BASOPHILS % (AUTO) 0.4 % (0-1); EOSINOPHILS % (AUTO) 0 % (0-6); HEMATOCRIT 33.9 % (35.0-45.0); HEMOGLOBIN 11.2 g/dl (12.0-16.0); LYMPHOCYTES # (AUTO) 0.3 X10'3 (1.1-4.8); LYMPHOCYTES % (AUTO) 2.4 % (21-51); MEAN CORPUSCULAR HEMOGLOBIN 31.3 PG (27.0-31.0); MEAN CORPUSCULAR VOLUME 94.6 FL (78-98); MEAN PLATELET VOLUME 8.5 FL (7.4-10.4); MONOCYTES # (AUTO) 0.3 X10'3 (0-0.9); MONOCYTES % (AUTO) 2.3 % (2-12); NEUTROPHILS # (AUTO) 13.3 X10'3 (1.8-7.7); NEUTROPHILS % (AUTO) 94.9 % (42-75); PLATELET COUNT 57 X10'3 (140-440); RED BLOOD COUNT 3.58 X10'6 (4.20-5.60); RED CELL DISTRIBUTION WIDTH 17.6 % (11.5-14.5)
[2022-05-03 14:47] LABS: ALANINE AMINOTRANSFERASE 20 U/L (12-78); ALBUMIN 2.3 G/DL (3.4-5.0); ALBUMIN/GLOBULIN RATIO 0.5 (1.1-1.5); ALKALINE PHOSPHATASE 227 IU/L (46-116); ANION GAP 17 (8-16); ASPARTATE AMINO TRANSFERASE 93 U/L (10-37); BILIRUBIN,TOTAL 3.8 MG/DL (0.1-1.0); BLOOD UREA NITROGEN 12 MG/DL (7-18); BUN/CREATININE RATIO 8.6 (6.6-38.0); CHLORIDE 103 MMOL/L (99-107); CREATININE 1.39 MG/DL (0.40-0.90); GLUCOSE 248 MG/DL (70-104); POTASSIUM 3.2 MMOL/L (3.5-5.1); SODIUM 136 MMOL/L (135-145); TOTAL CARBON DIOXIDE 16.4 MMOL/L (24-32); TOTAL PROTEIN 6.6 G/DL (6.4-8.2); eGFR 39 ML/MIN
[2022-05-03] MEDS ORDERED: LORazepam 1 MG tablet PO ONE (18:10)
[2022-05-03] MEDS ORDERED: mag hydrox/Alum hydrox/simeth 30ml oral suspension PO PRN (20:45)
[2022-05-03] MEDS ORDERED: ondansetron 4mg rapidly disintigrating tab PO PRN (20:45)
[2022-05-03] MEDS ORDERED: diphenhydrAMINE 50 mg/ml inj IV PRN (20:45)
[2022-05-03] MEDS ORDERED: magnesium hydroxide 30ml (MOM) UD suspension PO PRN (20:45)
[2022-05-03] MEDS ORDERED: potassium Cl 20 mEq SR tablet PO PRN ×2 (20:45)
[2022-05-03] MEDS ORDERED: acetaminophen 650mg rectal suppository RC PRN (20:45)
[2022-05-03] MEDS ORDERED: acetaminophen 325mg tablet PO PRN (20:45)
[2022-05-03] MEDS ORDERED: HYDROcodone/acetaminophen 5mg/325mg tablet PO PRN (20:45)
[2022-05-03] MEDS ORDERED: bisacodyl 10mg suppository rectal RC PRN (20:45)
[2022-05-03] MEDS ORDERED: morphine 2 MG/ML inj. syringe IV PRN ×2 (20:45)
[2022-05-03] MEDS ORDERED: DEXTROSE 15 GM of carb/4 tabs (each vial/BOTTLE has 4 tablets) PO PRN ×2 (20:55)
[2022-05-03] MEDS ORDERED: insulin Lispro (HumaLOG) vial - multi-dose SQ SCH (20:55)
[2022-05-03] MEDS ORDERED: MESSAGE TO PHARMACY PO ONE (20:55)
[2022-05-03] MEDS ORDERED: dextrose 50%-water 50ml dispensing syringe IV PRN ×2 (20:55)
[2022-05-03] MEDS ORDERED: glucagon, human recombinant 1mg kit SUBCUT PRN (20:55)
[2022-05-03] MEDS ORDERED: temazepam 15mg capsule PO PRN (21:00)
[2022-05-03 21:17] LABS: MAGNESIUM 1.1 MG/DL (1.5-2.4); PHOSPHORUS 2.4 MG/DL (2.3-4.5)
--- NOTE | 2022-05-03 21:24 | NUR ---
RT aware of abg and in rm at bedside at this time
[2022-05-03 21:35] LABS: HEMOGLOBIN A1C 4.4 % (4.5-6.2)
[2022-05-03 21:44] LABS: APTT 29 SECONDS (22-32)
[2022-05-03] MEDS: ipratropium/albuterol 3ml nebule NEB PRN (21:57)
[2022-05-03] MEDS: potassium Cl 20mEq in NS 1,000 ML IV SCH (22:48)
[2022-05-03] MEDS: levoFLOXACIN-Levaquin 500mg/D5 100 ML IV SCH (22:48)
[2022-05-03] MEDS ORDERED: LEVO137T2 PO (22:59)
[2022-05-03] MEDS ORDERED: FURO20TA4 PO (23:01)
[2022-05-03] MEDS: HYDROcodone/acetaminophen 10/325mg tab PO PRN (23:24)
[2022-05-04] MEDS: ondansetron/PF 4mg/2ml inj IV PRN ×2 (00:50→19:00)
[2022-05-04] MEDS: potassium Cl 20mEq in NS 1,000 ML IV SCH ×3 (07:27→21:06)
[2022-05-04 07:39] LABS: BASOPHILS % (AUTO) 0.3 % (0-1); EOSINOPHILS % (AUTO) 0 % (0-6); HEMATOCRIT 31.4 % (35.0-45.0); HEMOGLOBIN 10.5 g/dl (12.0-16.0); LYMPHOCYTES # (AUTO) 0.9 X10'3 (1.1-4.8); LYMPHOCYTES % (AUTO) 5.8 % (21-51); MEAN CORPUSCULAR HEMOGLOBIN 31.4 PG (27.0-31.0); MEAN CORPUSCULAR HGB CONC 33.4 g/dL (33.0-36.5); MEAN CORPUSCULAR VOLUME 94.1 FL (78-98); MEAN PLATELET VOLUME 8.9 FL (7.4-10.4); MONOCYTES # (AUTO) 0.8 X10'3 (0-0.9); MONOCYTES % (AUTO) 5.2 % (2-12); NEUTROPHILS # (AUTO) 13.8 X10'3 (1.8-7.7); NEUTROPHILS % (AUTO) 88.7 % (42-75); PLATELET COUNT 53 X10'3 (140-440); RED BLOOD COUNT 3.33 X10'6 (4.20-5.60); RED CELL DISTRIBUTION WIDTH 17.2 % (11.5-14.5); WHITE BLOOD COUNT 15.6 X10'3 (4.5-11.0)
[2022-05-04 07:51] LABS: ALANINE AMINOTRANSFERASE 20 U/L (12-78); ALBUMIN 2.1 G/DL (3.4-5.0); ALBUMIN/GLOBULIN RATIO 0.5 (1.1-1.5); ALKALINE PHOSPHATASE 188 IU/L (46-116); ANION GAP 9 (8-16); ASPARTATE AMINO TRANSFERASE 64 U/L (10-37); BLOOD UREA NITROGEN 16 MG/DL (7-18); BUN/CREATININE RATIO 14.3 (6.6-38.0); CALCIUM 8.5 MG/DL (8.5-10.1); CHLORIDE 101 MMOL/L (99-107); CHOL/HDL RATIO 1.8 (0.00-4.99); CHOLESTEROL 125 MG/DL (0-200); CREATININE 1.12 MG/DL (0.40-0.90); GLUCOSE 89 MG/DL (70-104); HDL CHOLESTEROL 69 MG/DL (35-60); LDL CHOLESTEROL 48 MG/DL (50-100); POTASSIUM 3.4 MMOL/L (3.5-5.1); SODIUM 133 MMOL/L (135-145); TOTAL CARBON DIOXIDE 23.2 MMOL/L (24-32); TOTAL PROTEIN 6.1 G/DL (6.4-8.2); TRIGLYCERIDES 48 MG/DL (20-135); eGFR 50 ML/MIN
[2022-05-04] MEDS: K and/or MAG REPLACEMENT MC SCH ×2 (08:00→19:57)
[2022-05-04] MEDS: docusate sod 100mg capsule PO SCH ×2 (08:00→19:57)
[2022-05-04] MEDS: levoFLOXACIN-Levaquin 500mg/D5 100 ML IV SCH (08:19)
[2022-05-04] MEDS: ipratropium/albuterol 3ml nebule NEB PRN ×3 (10:03→19:32)
--- NOTE | 2022-05-04 10:44 | NUR ---
PT REQUESTED ASSISTANCE GETTING UP TO THE BEDSIDE CAMODE. PT ASSASTED BACK INTO BED BY HER . PT GIVEN SOCKS AND WARM BLANKETS
[2022-05-04] MEDS: acetaminophen 325mg tablet PO PRN (11:22)
[2022-05-04] MEDS ORDERED: non-formulary drug (Ondansetron HCl 1 TAB) PO PRN (14:40)
[2022-05-04] MEDS ORDERED: proCHLORperazine 10mg tablet PO PRN (14:40)
--- NOTE | 2022-05-04 15:23 | NUR ---
JONATHAN COMPLETE 2100 ML REMOVED. RN AWARE.
[2022-05-04] MEDS: lactulose 20gm/30ml cup PO SCH ×2 (18:00→21:07)
--- NOTE | 2022-05-04 18:43 | NUR ---
Problems reprioritized. Patient report given, questions answered & plan of care reviewed with LOLIS Galicia.
--- NOTE | 2022-05-04 19:15 | NUR ---
Spoke with MD Manning regarding critical lab result of Positive blood cultures from left arm gram + rods and gram negative rods in aerobic bottle. New order received for Clindamycin 300 mg IV BID. Order placed at this time.
[2022-05-04] MEDS: budesonide 0.5mg/2ml UD nebule IH SCH (19:32)
[2022-05-04 20:00] VITALS: BP 103/62
[2022-05-04] MEDS: clindamycin 300mg/D5W 50mL 50 ML IV SCH (21:06)
[2022-05-04] MEDS: rifaximin 550mg tablet PO SCH (21:07)
[2022-05-04] MEDS: midodrine 5mg tablet PO SCH (21:07)
[2022-05-04] MEDS: diphenhydrAMINE 25mg capsule PO PRN (23:40)
[2022-05-05 02:00] VITALS: BP 105/65
[2022-05-05] MEDS: HYDROcodone/acetaminophen 10/325mg tab PO PRN (02:48)
[2022-05-05 06:00] VITALS: BP 108/70
--- NOTE | 2022-05-05 06:35 | NUR ---
Patient in room PCU 3014. I have received report from LOLIS Galicia and had the opportunity to ask questions and assume patient care.
[2022-05-05 07:36] LABS: BASOPHILS % (AUTO) 0.3 % (0-1); EOSINOPHILS # (AUTO) 0.1 X10'3 (0-0.9); EOSINOPHILS % (AUTO) 0.7 % (0-6); HEMATOCRIT 30.9 % (35.0-45.0); HEMOGLOBIN 10.3 g/dl (12.0-16.0); LYMPHOCYTES # (AUTO) 1.1 X10'3 (1.1-4.8); LYMPHOCYTES % (AUTO) 8.4 % (21-51); MEAN CORPUSCULAR HGB CONC 33.5 g/dL (33.0-36.5); MEAN CORPUSCULAR VOLUME 95.5 FL (78-98); MEAN PLATELET VOLUME 8.6 FL (7.4-10.4); MONOCYTES # (AUTO) 0.8 X10'3 (0-0.9); MONOCYTES % (AUTO) 6.4 % (2-12); NEUTROPHILS # (AUTO) 10.7 X10'3 (1.8-7.7); NEUTROPHILS % (AUTO) 84.2 % (42-75); PLATELET COUNT 66 X10'3 (140-440); RED BLOOD COUNT 3.23 X10'6 (4.20-5.60); RED CELL DISTRIBUTION WIDTH 17.6 % (11.5-14.5); WHITE BLOOD COUNT 12.7 X10'3 (4.5-11.0)
[2022-05-05] MEDS: levoTHYROXINE 25mcg tablet PO SCH (07:36)
[2022-05-05] MEDS: levoTHYROXINE 112mcg tablet PO SCH (07:36)
[2022-05-05] MEDS: lactulose 20gm/30ml cup PO SCH ×2 (07:36→20:00)
[2022-05-05] MEDS: pantoprazole 40mg Tablet.DR PO SCH (07:36)
[2022-05-05] MEDS: spironolactone 25 MG tablet PO SCH (07:36)
[2022-05-05] MEDS: rifaximin 550mg tablet PO SCH ×2 (07:37→20:56)
[2022-05-05] MEDS: levoFLOXACIN-Levaquin 500mg/D5 100 ML IV SCH (07:37)
[2022-05-05] MEDS: montelukast 10mg tablet PO SCH (07:37)
[2022-05-05] MEDS: midodrine 5mg tablet PO SCH ×3 (07:37→21:36)
[2022-05-05] MEDS: clindamycin 300mg/D5W 50mL 50 ML IV SCH (07:37)
[2022-05-05] MEDS: magnesium oxide 400mg tablet PO SCH (07:37)
[2022-05-05] MEDS: docusate sod 100mg capsule PO SCH ×2 (08:00→20:00)
[2022-05-05 08:05] LABS: ALANINE AMINOTRANSFERASE 14 U/L (12-78); ALBUMIN/GLOBULIN RATIO 0.5 (1.1-1.5); ALKALINE PHOSPHATASE 200 IU/L (46-116); ANION GAP 9 (8-16); ASPARTATE AMINO TRANSFERASE 44 U/L (10-37); BILIRUBIN,TOTAL 3.2 MG/DL (0.1-1.0); BLOOD UREA NITROGEN 20 MG/DL (7-18); BUN/CREATININE RATIO 16.7 (6.6-38.0); CALCIUM 8.2 MG/DL (8.5-10.1); CHLORIDE 99 MMOL/L (99-107); GLUCOSE 73 MG/DL (70-104); POTASSIUM 3.3 MMOL/L (3.5-5.1); SODIUM 129 MMOL/L (135-145); TOTAL CARBON DIOXIDE 21.1 MMOL/L (24-32); TOTAL PROTEIN 5.7 G/DL (6.4-8.2); eGFR 46 ML/MIN
[2022-05-05] MEDS: diphenhydrAMINE 25mg capsule PO PRN (08:21)
[2022-05-05] MEDS: K and/or MAG REPLACEMENT MC SCH ×2 (08:27→20:00)
--- NOTE | 2022-05-05 09:28 | NUR ---
Informed Dr. Beck that pt's hgb a1c is 4.4 and that we are checking her blood sugar. Dr. Beck stated ok to stop checking blood sugar on pt.
--- NOTE | 2022-05-05 09:34 | NUR ---
Paged Dr. Beck re: Pt states she takes lactulose BID at home instead of QID d/t loose stool. Pt's ammonia is 11. Can we change to BID?
[2022-05-05] MEDS: budesonide 0.5mg/2ml UD nebule IH SCH ×2 (10:37→19:44)
[2022-05-05 11:05] VITALS: BP 112/81
--- NOTE | 2022-05-05 11:35 | NUR ---
paged Dr. Beck re: FYI pt's HR ST up to 152 when up to the commode. In ST at baseline 100s-120s
[2022-05-05] MEDS: potassium Cl 20mEq in NS 1,000 ML IV SCH ×2 (11:36→22:40)
[2022-05-05] MEDS ORDERED: levoFLOXACIN-Levaquin 500mg/D5 100 ML IV SCH (11:46)
[2022-05-05] MEDS ORDERED: VANCOMYCIN 1,500MG in normal saline IV soln 300 ML IV ONE (12:00)
--- NOTE | 2022-05-05 13:46 | NUR ---
paged Dr. Beck re: Repeat lactic acid was 2.0. pt currently ST 130s while in bed.
[2022-05-05 16:30] VITALS: BP 111/78
[2022-05-05 18:00] VITALS: BP 106/73
--- NOTE | 2022-05-05 18:30 | NUR ---
Patient in room PCU 9802Y. I have received report from Troy BALBUENA and had the opportunity to ask questions and assume patient care. Pt is sitting high fowlers in bed watching TV. Pt on RA. No s/s of distress. Pt declines c/o pain at this time. BLL, call light within reach, frequently used items in reach, frequent rounding. Will continue to monitor.
--- NOTE | 2022-05-05 18:45 | NUR ---
Problems reprioritized. Patient report given, questions answered & plan of care reviewed with LOLIS Gil.
[2022-05-05] MEDS: ipratropium/albuterol 3ml nebule NEB PRN (19:44)
[2022-05-05 22:00] VITALS: BP_SYST 115; BP_SYST 153; BP_DIAS 67; BP_DIAS 71
--- NOTE | 2022-05-06 02:50 | NUR ---
Problems reprioritized. Patient report given, questions answered & plan of care reviewed with Helga DIXON
[2022-05-06 06:00] VITALS: BP 104/71
--- NOTE | 2022-05-06 06:20 | NUR ---
Patient in room PCU 3015. I have received report from LOLIS Avila and had the opportunity to ask questions and assume patient care.
[2022-05-06] MEDS: docusate sod 100mg capsule PO SCH ×3 (07:11→20:00)
[2022-05-06 07:47] LABS: ALANINE AMINOTRANSFERASE 13 U/L (12-78); ALBUMIN 1.8 G/DL (3.4-5.0); ALBUMIN/GLOBULIN RATIO 0.5 (1.1-1.5); ALKALINE PHOSPHATASE 163 IU/L (46-116); ANION GAP 10 (8-16); ASPARTATE AMINO TRANSFERASE 33 U/L (10-37); BLOOD UREA NITROGEN 16 MG/DL (7-18); BUN/CREATININE RATIO 14.4 (6.6-38.0); CALCIUM 7.9 MG/DL (8.5-10.1); CHLORIDE 102 MMOL/L (99-107); CREATININE 1.11 MG/DL (0.40-0.90); GLUCOSE 77 MG/DL (70-104); POTASSIUM 4.1 MMOL/L (3.5-5.1); SODIUM 130 MMOL/L (135-145); TOTAL CARBON DIOXIDE 17.9 MMOL/L (24-32); TOTAL PROTEIN 5.5 G/DL (6.4-8.2); eGFR 51 ML/MIN
[2022-05-06] MEDS: rifaximin 550mg tablet PO SCH ×2 (07:47→19:56)
[2022-05-06] MEDS: levoTHYROXINE 112mcg tablet PO SCH (07:47)
[2022-05-06] MEDS: spironolactone 25 MG tablet PO SCH (07:47)
[2022-05-06] MEDS: midodrine 5mg tablet PO SCH ×3 (07:47→19:57)
[2022-05-06] MEDS: magnesium oxide 400mg tablet PO SCH (07:47)
[2022-05-06] MEDS: levoTHYROXINE 25mcg tablet PO SCH (07:47)
[2022-05-06] MEDS: pantoprazole 40mg Tablet.DR PO SCH (07:47)
[2022-05-06 07:48] LABS: BASOPHILS % (AUTO) 0.4 % (0-1); EOSINOPHILS # (AUTO) 0.2 X10'3 (0-0.9); EOSINOPHILS % (AUTO) 1.9 % (0-6); HEMATOCRIT 30.4 % (35.0-45.0); HEMOGLOBIN 10.2 g/dl (12.0-16.0); LYMPHOCYTES % (AUTO) 11.1 % (21-51); MEAN CORPUSCULAR HGB CONC 33.4 g/dL (33.0-36.5); MEAN CORPUSCULAR VOLUME 95.9 FL (78-98); MEAN PLATELET VOLUME 8.3 FL (7.4-10.4); MONOCYTES # (AUTO) 1.1 X10'3 (0-0.9); MONOCYTES % (AUTO) 11.5 % (2-12); NEUTROPHILS # (AUTO) 6.9 X10'3 (1.8-7.7); NEUTROPHILS % (AUTO) 75.1 % (42-75); PLATELET COUNT 71 X10'3 (140-440); RED BLOOD COUNT 3.17 X10'6 (4.20-5.60); RED CELL DISTRIBUTION WIDTH 17.8 % (11.5-14.5); WHITE BLOOD COUNT 9.1 X10'3 (4.5-11.0)
[2022-05-06] MEDS: lactulose 20gm/30ml cup PO SCH ×2 (07:48→19:56)
[2022-05-06] MEDS: montelukast 10mg tablet PO SCH (07:48)
[2022-05-06] MEDS: K and/or MAG REPLACEMENT MC SCH ×2 (07:57→19:06)
--- NOTE | 2022-05-06 08:01 | NUR ---
paged Dr. Calzada re: FYI pt's CO2 has been dropping 23.2 > 21.1 > 17.9 (today). Also pt is asking about being discharged today.
[2022-05-06] MEDS: budesonide 0.5mg/2ml UD nebule IH SCH ×2 (08:12→19:54)
[2022-05-06] MEDS: potassium Cl 20mEq in NS 1,000 ML IV SCH ×2 (08:45→21:39)
[2022-05-06] MEDS ORDERED: levoFLOXACIN 250mg tablet PO SCH (11:00)
--- NOTE | 2022-05-06 11:03 | NUR ---
paged Dr. Calzada re: Pt is asking about being discharged again.
[2022-05-06 11:08] VITALS: BP 121/70
--- NOTE | 2022-05-06 12:00 | NUR ---
paged Dr. Calzada re: Patient is requesting to leave AMA. Please come to bedside.
[2022-05-06] MEDS ORDERED: vancomycin/NS 1 GM ADD-VANTAGE 250 ML IV SCH (13:00)
[2022-05-06] MEDS: sodium bicarbonate 650mg tablet PO SCH ×3 (13:00→19:56)
[2022-05-06] MEDS: acetaminophen 325mg tablet PO PRN (13:45)
[2022-05-06] MEDS: piperacillin/tazo 3.375gm/50ml 50 ML IV SCH ×3 (13:45→23:32)
--- NOTE | 2022-05-06 15:49 | NUR ---
spoke with pharmacy about timing of zosyn. requested doses be retimed for the next one to be at 2200 since the previous dose was given at 1345 and it's ordered Q8H. pharmacy did not want to retime doses, instead stated to not give the 1600 dose of zosyn.
[2022-05-06 18:00] VITALS: BP 109/66
--- NOTE | 2022-05-06 18:32 | NUR ---
Problems reprioritized. Patient report given, questions answered & plan of care reviewed with LOLIS Maier.
[2022-05-06] MEDS: ipratropium/albuterol 3ml nebule NEB PRN (19:54)
[2022-05-06 22:00] VITALS: BP 115/69
[2022-05-06] MEDS ORDERED: temazepam 15mg capsule PO PRN (23:45)
[2022-05-06] MEDS ORDERED: temazepam 15mg capsule PO ONE (23:45)
--- NOTE | 2022-05-06 23:49 | NUR ---
Pt took PRN Restoril 15 mg PO at 1955 PM per pt requested
[2022-05-07 02:00] VITALS: BP 106/68
[2022-05-07 06:00] VITALS: BP 100/59
--- NOTE | 2022-05-07 06:20 | NUR ---
Patient in room PCU 3015. I have received report from LOLIS Maier and had the opportunity to ask questions and assume patient care.
[2022-05-07 07:31] LABS: ALANINE AMINOTRANSFERASE 11 U/L (12-78); ALBUMIN 1.9 G/DL (3.4-5.0); ALBUMIN/GLOBULIN RATIO 0.5 (1.1-1.5); ALKALINE PHOSPHATASE 177 IU/L (46-116); ANION GAP 11 (8-16); ASPARTATE AMINO TRANSFERASE 36 U/L (10-37); BILIRUBIN,TOTAL 3.6 MG/DL (0.1-1.0); BLOOD UREA NITROGEN 14 MG/DL (7-18); BUN/CREATININE RATIO 11.7 (6.6-38.0); CALCIUM 8.5 MG/DL (8.5-10.1); CHLORIDE 103 MMOL/L (99-107); GLUCOSE 83 MG/DL (70-104); MAGNESIUM 1.5 MG/DL (1.5-2.4); POTASSIUM 4.1 MMOL/L (3.5-5.1); SODIUM 131 MMOL/L (135-145); TOTAL CARBON DIOXIDE 17.2 MMOL/L (24-32); TOTAL PROTEIN 5.7 G/DL (6.4-8.2); eGFR 46 ML/MIN
[2022-05-07] MEDS: docusate sod 100mg capsule PO SCH (08:00)
[2022-05-07] MEDS: K and/or MAG REPLACEMENT MC SCH (08:00)
--- NOTE | 2022-05-07 08:16 | NUR ---
paged Dr. Calzada re: FYI pt's carbon dioxide lower than yesterday 21.1 > 17.9 > 17.2 (today).
[2022-05-07] MEDS: rifaximin 550mg tablet PO SCH (08:22)
[2022-05-07] MEDS: montelukast 10mg tablet PO SCH (08:22)
[2022-05-07] MEDS: magnesium oxide 400mg tablet PO SCH (08:22)
[2022-05-07] MEDS: piperacillin/tazo 3.375gm/50ml 50 ML IV SCH (08:23)
[2022-05-07] MEDS: lactulose 20gm/30ml cup PO SCH (08:23)
[2022-05-07] MEDS: levoTHYROXINE 112mcg tablet PO SCH (08:23)
[2022-05-07] MEDS: sodium bicarbonate 650mg tablet PO SCH (08:23)
[2022-05-07] MEDS: midodrine 5mg tablet PO SCH (08:23)
[2022-05-07] MEDS: spironolactone 25 MG tablet PO SCH (08:23)
[2022-05-07] MEDS: pantoprazole 40mg Tablet.DR PO SCH (08:23)
[2022-05-07] MEDS: levoTHYROXINE 25mcg tablet PO SCH (08:23)
--- NOTE | 2022-05-07 09:11 | NUR ---
paged Dr. Calzada re: Pt very upset and states she's "depressed". Wanting to talk to you about discharge and blood cultures
[2022-05-07] MEDS: budesonide 0.5mg/2ml UD nebule IH SCH (09:22)
[2022-05-07 10:17] LABS: BASOPHILS % (AUTO) 0.6 % (0-1); EOSINOPHILS # (AUTO) 0.4 X10'3 (0-0.9); EOSINOPHILS % (AUTO) 5.4 % (0-6); HEMATOCRIT 30.9 % (35.0-45.0); HEMOGLOBIN 10.3 g/dl (12.0-16.0); LYMPHOCYTES # (AUTO) 0.5 X10'3 (1.1-4.8); LYMPHOCYTES % (AUTO) 7.9 % (21-51); MEAN CORPUSCULAR HEMOGLOBIN 32.2 PG (27.0-31.0); MEAN CORPUSCULAR HGB CONC 33.4 g/dL (33.0-36.5); MEAN CORPUSCULAR VOLUME 96.3 FL (78-98); MONOCYTES # (AUTO) 1.2 X10'3 (0-0.9); MONOCYTES % (AUTO) 18.6 % (2-12); NEUTROPHILS # (AUTO) 4.5 X10'3 (1.8-7.7); NEUTROPHILS % (AUTO) 67.5 % (42-75); RED BLOOD COUNT 3.21 X10'6 (4.20-5.60); RED CELL DISTRIBUTION WIDTH 18.5 % (11.5-14.5); WHITE BLOOD COUNT 6.6 X10'3 (4.5-11.0)
[2022-05-07 10:26] LABS: PLATELET COUNT 77 X10'3 (140-440)
[2022-05-07 10:27] LABS: MEAN PLATELET VOLUME 8.5 FL (7.4-10.4)
[2022-05-07 10:32] VITALS: BP 126/75
[2022-05-07] MEDS ORDERED: sodium bicarbonate (8.4%) inj. 150 MEQ in dextrose 5%-water 1,000 ML IV SCH (11:00)
[2022-05-07] MEDS ORDERED: propranolol 10mg tablet PO ONE (11:00)
--- NOTE | 2022-05-07 11:08 | NUR ---
patient wants to leave AMA. please come to bedside.
--- NOTE | 2022-05-07 11:51 | NUR ---
paged Dr. Zheng marquez re: Pt is leaving AMA. Signing paperwork now.
--- NOTE | 2022-05-07 12:09 | NUR ---
patient left AMA at 1209. pt walked down to lobby with and all belongings. IVs removed. tele discontinued. Dr. Calzada at bedside to inform patient of the risks of leaving AMA. Pt and acknowledge risks of leaving AMA and are aware they will not receive paperwork or prescriptions.
[2022-05-07] MEDS ORDERED: propranolol 10mg tablet PO SCH (13:00)
[2022-05-08] MEDS ORDERED: VANCOMYCIN LEVEL IV ONE (12:30)
== END 2022-05-07 14:00 | disposition left against medical advice (07) | DRG 193 ==
LOC: ER 13:52 → ED HOLD 20:53 → PCU 3S 05-04 18:29
PROVIDERS: ADMIT Family Medicine; ATTEND Family Medicine
PROC: 0W993ZZ Drainage of Right Pleural Cavity, Percutaneous Approach (ICD-10-PCS; principal; 2022-05-04)
DX: J18.9 Pneumonia, unspecified organism (principal); I50.33 Acute on chronic diastolic (congestive) heart failure; J96.01 Acute respiratory failure with hypoxia; E87.20 Acidosis, unspecified; J44.0 Chronic obstructive pulmonary disease with (acute) lower respiratory infection; J94.8 Other specified pleural conditions; J91.8 Pleural effusion in other conditions classified elsewhere; I13.0 Hypertensive heart and chronic kidney disease with heart failure and stage 1 through stage 4 chronic kidney disease, or unspecified chronic kidney disease; Z53.29 Procedure and treatment not carried out because of patient's decision for other reasons; Z20.822 Contact with and (suspected) exposure to COVID-19; D64.9 Anemia, unspecified; D69.6 Thrombocytopenia, unspecified; E03.9 Hypothyroidism, unspecified; E80.6 Other disorders of bilirubin metabolism; E11.22 Type 2 diabetes mellitus with diabetic chronic kidney disease; N18.9 Chronic kidney disease, unspecified; F41.9 Anxiety disorder, unspecified; E11.65 Type 2 diabetes mellitus with hyperglycemia; R00.0 Tachycardia, unspecified; E87.6 Hypokalemia; E88.09 Other disorders of plasma-protein metabolism, not elsewhere classified; I27.20 Pulmonary hypertension, unspecified; K70.30 Alcoholic cirrhosis of liver without ascites; K70.40 Alcoholic hepatic failure without coma; Z88.8 Allergy status to other drugs, medicaments and biological substances; Z72.0 Tobacco use; Z76.82 Awaiting organ transplant status; Z79.899 Other long term (current) drug therapy
CPT/HCPCS: 32555; 36415; 71045; 71250; 80053; 80061; 82140; 82948; 83036; 83605; 83735; 83880; 84100; 84145; 84484; 85025; 85610; 85730; 87040; 87081; 87502; 87503; 87635; 93005; 94640; 94760; 97116; 97161; 97530; 99285; C9803; G0378; J1200; J1815; J1956; J2405; J2543; J3370; J3480; J3490; J7040; Q0163

== ENCOUNTER 2022-10-27 08:32 | Emergency (ER) | payer BC ==
[~2022-10-27] VITALS: Ht 167.6 cm; Wt 61.0 kg
[~2022-10-27 08:32] MED LIST changes: +FURO20TA4 PO; -LEVO125T8 PO; +LEVO137T2 PO; -SULF1TAB45 PO
--- NOTE | 2022-10-27 09:15 | NUR ---
BR[employer]ONES [employer] OPERATOR AT BEDSIDE.
--- NOTE | 2022-10-27 09:19 | NUR ---
LABS HAVE BEEN COLLECTED. XRAY AT BEDSIDE. RN WILL OBTAIN IV ONCE XRAY COMPLETE.
--- NOTE | 2022-10-27 09:35 | NUR ---
LOLIS GERMAIN UNABLE TO OBTAIN IV. THIS RN WILL ATTEMPT WITH US MACHINE.
[2022-10-27 09:37] LABS: ALANINE AMINOTRANSFERASE 33 U/L (12-78); ALBUMIN 3.3 G/DL (3.4-5.0); ALKALINE PHOSPHATASE 225 IU/L (46-116); ANION GAP 9 (8-16); ASPARTATE AMINO TRANSFERASE 57 U/L (10-37); BILIRUBIN,TOTAL 4.9 MG/DL (0.1-1.0); BLOOD UREA NITROGEN 43 MG/DL (7-18); CALCIUM 9.1 MG/DL (8.5-10.1); CHLORIDE 88 MMOL/L (99-107); CREATININE 2.39 MG/DL (0.40-0.90); GLUCOSE 118 MG/DL (70-104); SODIUM 123 MMOL/L (135-145); TOTAL CARBON DIOXIDE 26.3 MMOL/L (24-32); eGFR 21 ML/MIN
[2022-10-27 09:38] LABS: ALBUMIN/GLOBULIN RATIO 0.8 (1.1-1.5); TOTAL PROTEIN 7.7 G/DL (6.4-8.2)
[2022-10-27 09:39] LABS: POTASSIUM 2.8 MMOL/L (3.5-5.1)
[2022-10-27 09:43] LABS: BASOPHILS % (AUTO) 0.4 % (0-1); EOSINOPHILS # (AUTO) 0.1 X10'3 (0-0.9); EOSINOPHILS % (AUTO) 1.3 % (0-6); HEMATOCRIT 33.7 % (35.0-45.0); HEMOGLOBIN 11.6 g/dl (12.0-16.0); LYMPHOCYTES # (AUTO) 0.6 X10'3 (1.1-4.8); LYMPHOCYTES % (AUTO) 11.9 % (21-51); MEAN CORPUSCULAR HEMOGLOBIN 36.4 PG (27.0-31.0); MEAN CORPUSCULAR HGB CONC 34.3 g/dL (33.0-36.5); MEAN CORPUSCULAR VOLUME 106.1 FL (78-98); MEAN PLATELET VOLUME 9.3 FL (7.4-10.4); MONOCYTES # (AUTO) 1.1 X10'3 (0-0.9); MONOCYTES % (AUTO) 21.3 % (2-12); NEUTROPHILS # (AUTO) 3.3 X10'3 (1.8-7.7); NEUTROPHILS % (AUTO) 65.1 % (42-75); PLATELET COUNT 89 X10'3 (140-440); RED BLOOD COUNT 3.18 X10'6 (4.20-5.60); RED CELL DISTRIBUTION WIDTH 14.4 % (11.5-14.5)
--- NOTE | 2022-10-27 09:56 | NUR ---
PT TAKEN TO CT
[2022-10-27] MEDS ORDERED: POTASSIUM BICARB 20meq eff tab 20 MEQ TABLET.EFF PO STA (10:04)
[2022-10-27] MEDS ORDERED: normal saline 1000ml 1,000 ML IV ONE (10:05)
[2022-10-27] MEDS ORDERED: magnesium 2GM in 50ml NS 50 ML IV ONE (11:10)
[2022-10-27] MEDS ORDERED: potassium Cl 40MEQ/1/2NS 520ml 520 ML IV ONE (11:10)
[2022-10-27 11:22] LABS: APTT 22 SECONDS (22-32)
[2022-10-27 12:02] LABS: MAGNESIUM 2.1 MG/DL (1.5-2.4)
[2022-10-27 12:40] VITALS: BP 102/66
[2022-10-27 13:48] LABS: CLARITY,URINE CLEAR (Clear); COLOR,URINE YELLOW (Yellow); GLUCOSE, URINE NEGATIVE (Neg); KETONES,URINE NEGATIVE (Neg); LEUKOCYTE ESTERASE ,URINE NEGATIVE (Neg); NITRITES, URINE NEGATIVE (Neg); OCCULT BLOOD,URINE NEGATIVE (Neg); PH,URINE 6.5 (4.8-8.0); PROTEIN,URINE NEGATIVE (Neg); UROBILINOGEN,URINE 0.2 E.U/dL (0.2-1.0)
[2022-10-27 13:50] LABS: UA COLLECTION TYPE CLN CATCH MIDSTREAM
== END 2022-10-27 13:20 | disposition left against medical advice (07) ==
LOC: ER 08:33
DX: E87.6 Hypokalemia (principal); E87.1 Hypo-osmolality and hyponatremia; N18.9 Chronic kidney disease, unspecified; N17.9 Acute kidney failure, unspecified; E03.9 Hypothyroidism, unspecified; F17.200 Nicotine dependence, unspecified, uncomplicated; Z88.1 Allergy status to other antibiotic agents
CPT/HCPCS: 36415; 70450; 70486; 71045; 72125; 80053; 81003; 83735; 83880; 84484; 85025; 85610; 85730; 93005; 96361; 96365; 99285; J3475; J7030

== ENCOUNTER 2022-12-01 09:03 | Emergency (ER) | payer BC ==
[~2022-12-01] VITALS: Ht 167.6 cm; Wt 64.0 kg
[2022-12-01 15:07] LABS: BASOPHILS # (AUTO) 0.1 X10'3 (0-0.2); BASOPHILS % (AUTO) 0.8 % (0-1); EOSINOPHILS % (AUTO) 0.7 % (0-6); HEMATOCRIT 37.1 % (35.0-45.0); HEMOGLOBIN 12.5 g/dl (12.0-16.0); LYMPHOCYTES # (AUTO) 0.6 X10'3 (1.1-4.8); LYMPHOCYTES % (AUTO) 9.1 % (21-51); MEAN CORPUSCULAR HEMOGLOBIN 35.9 PG (27.0-31.0); MEAN CORPUSCULAR HGB CONC 33.7 g/dL (33.0-36.5); MEAN CORPUSCULAR VOLUME 106.5 FL (78-98); MEAN PLATELET VOLUME 8.8 FL (7.4-10.4); MONOCYTES # (AUTO) 0.7 X10'3 (0-0.9); MONOCYTES % (AUTO) 10.4 % (2-12); NEUTROPHILS # (AUTO) 5.4 X10'3 (1.8-7.7); PLATELET COUNT 64 X10'3 (140-440); RED BLOOD COUNT 3.48 X10'6 (4.20-5.60); RED CELL DISTRIBUTION WIDTH 17.2 % (11.5-14.5); WHITE BLOOD COUNT 6.8 X10'3 (4.5-11.0)
[2022-12-01 15:13] LABS: ALANINE AMINOTRANSFERASE 67 U/L (12-78); ALBUMIN 3.1 G/DL (3.4-5.0); ALBUMIN/GLOBULIN RATIO 0.8 (1.1-1.5); ALKALINE PHOSPHATASE 248 IU/L (46-116); ANION GAP 12 (8-16); ASPARTATE AMINO TRANSFERASE 63 U/L (10-37); BILIRUBIN,TOTAL 3.1 MG/DL (0.1-1.0); BLOOD UREA NITROGEN 20 MG/DL (7-18); CALCIUM 9.8 MG/DL (8.5-10.1); CHLORIDE 89 MMOL/L (99-107); CREATININE 1.81 MG/DL (0.40-0.90); GLUCOSE 90 MG/DL (70-104); LIPASE 139 U/L (73-393); POTASSIUM 3.2 MMOL/L (3.5-5.1); SODIUM 128 MMOL/L (135-145); TOTAL CARBON DIOXIDE 27.4 MMOL/L (24-32); TOTAL PROTEIN 6.8 G/DL (6.4-8.2); eGFR 29 ML/MIN
[2022-12-01 15:40] LABS: CLARITY,URINE CLOUDY (Clear); COLOR,URINE YELLOW (Yellow); GLUCOSE, URINE NEGATIVE (Neg); KETONES,URINE NEGATIVE (Neg); LEUKOCYTE ESTERASE ,URINE NEGATIVE (Neg); NITRITES, URINE NEGATIVE (Neg); OCCULT BLOOD,URINE NEGATIVE (Neg); PROTEIN,URINE NEGATIVE (Neg); UROBILINOGEN,URINE 0.2 E.U/dL (0.2-1.0)
[2022-12-01 15:43] LABS: UA COLLECTION TYPE CLN CATCH MIDSTREAM
[2022-12-01 16:20] LABS: TRANSITIONAL EPI CELLS,URINE FEW /HPF
[2022-12-01 16:22] LABS: RBC,URINE 0-2 /HPF (0-2)
[2022-12-01 16:23] LABS: HYALINE CASTS 0-3 /LPF (NEGATIVE)
[2022-12-01 16:27] LABS: BACTERIA,URINE 3+ /HPF (Neg); SQUAMOUS EPITHELIAL CELL,UR MODERATE /LPF (FEW)
[2022-12-01 16:29] VITALS: BP 127/74
[2022-12-01] MEDS ORDERED: NITR100C6 PO (18:20)
== END 2022-12-01 16:31 | disposition home or self-care (01) ==
LOC: ER 09:04
DX: K70.31 Alcoholic cirrhosis of liver with ascites (principal); N39.0 Urinary tract infection, site not specified; K59.00 Constipation, unspecified; R10.9 Unspecified abdominal pain; N18.9 Chronic kidney disease, unspecified; E03.9 Hypothyroidism, unspecified; F41.9 Anxiety disorder, unspecified; Z88.8 Allergy status to other drugs, medicaments and biological substances; Z91.018 Allergy to other foods; Z79.899 Other long term (current) drug therapy; Z79.1 Long term (current) use of non-steroidal anti-inflammatories (NSAID); Z79.2 Long term (current) use of antibiotics
CPT/HCPCS: 49083; 74176; 80053; 81001; 82140; 83690; 85025; 87077; 87088; 87186; 99283; 99284; 99285